=== PATIENT | male | born 1985 | race Caucasian/White ===

== ENCOUNTER 2019-01-16 22:48 | Inpatient (IN) | payer OTHER ==
[~2019-01-16] VITALS: Ht 167.6 cm; Wt 79.5 kg
[2019-01-16] MEDS ORDERED: KETOROLAC 15 MG INJ IV STA (23:48)
[2019-01-17] VITALS (23 sets, daily range): BP systolic 84–122; BP diastolic 46–76; PULSE 54–98; RESP 16–27; Ht 167.6 cm; Wt 79.5 kg
--- NOTE | 2019-01-17 00:05 | ERD ---
ER Documentation Chief Complaint Chief Complaint R TESTICULAR PAIN AND SWELLING X 1 MONTH HPI 33-year-old male with past medical history of right inguinal hernia presenting to the emergency department complaining of increasing pain and swelling noted to the right inguinal region and right testicle for the past 1 day. Pain is rated 8/10 in severity and intermittent. He states typically he is unable to reduce the hernia but today was unable to do so. He tried no medication for relief of symptoms. He denies any abdominal pain, nausea, vomiting, diarrhea, fever, chills, or other symptoms at this time. ROS All systems reviewed and are negative except as per history of present illness. Allergies Allergies: Coded Allergies: No Known Allergy (Unverified , 01/16/19) PMhx/Soc Hx Miscellaneous Medical Probl: Yes (Right inguinal hernia) FmHx Family History: No diabetes Physical Exam Vitals Vital Signs Date Temp Pulse Resp B/P (MAP) Pulse Ox O2 O2 Flow FiO2 Time Delivery Rate 01/16/19 97.6 72 20 158/78 98 22:56 (104) Physical Exam Const: No acute distress Head: Atraumatic Eyes: Normal Conjunctiva ENT: Normal External Ears, Nose and Mouth. Neck: Full range of motion. No meningismus. Resp: Clear to auscultation bilaterally Cardio: Regular rate and rhythm, no murmurs Abd: Soft, non tender, non distended. Normal bowel sounds. No rebound tenderness or guarding. No McBurney's point tenderness. Exam: Scrotum: Normal Hernia: Large nonreducible right inguinal hernia. Testes/Epid: Significant swelling noted to the right testicle with associated tenderness to palpation. Cremaster: Reflex intact Lymph: No inguinal lymphadenopathy Discharge: None Skin: No petechiae or rashes Back: No midline or flank tenderness Ext: No cyanosis, or edema Neur: Awake and alert Psych: Normal Mood and Affect Result Diagram: 01/16/19 2356 01/16/19 2356 Results 24 hrs Laboratory Tests Test 01/16/19 23:56 White Blood Count 13.3 10^3/ul Red Blood Count 5.55 10^6/ul Hemoglobin 15.5 g/dl Hematocrit 45.9 % Mean Corpuscular Volume 82.7 fl Mean Corpuscular Hemoglobin 27.9 pg Mean Corpuscular Hemoglobin Concent 33.8 g/dl Red Cell Distribution Width 12.3 % Platelet Count 272 10^3/UL Mean Platelet Volume 9.9 fl Immature Granulocytes % 0.300 % Neutrophils % 74.0 % Lymphocytes % 17.0 % Monocytes % 7.5 % Eosinophils % 0.8 % Basophils % 0.4 % Nucleated Red Blood Cells % 0.0 /100WBC Immature Granulocytes # 0.040 10^3/ul Neutrophils # 9.9 10^3/ul Lymphocytes # 2.3 10^3/ul Monocytes # 1.0 10^3/ul Eosinophils # 0.1 10^3/ul Basophils # 0.1 10^3/ul Nucleated Red Blood Cells # 0.0 10^3/ul Prothrombin Time 12.4 Sec Prothrombin Time Ratio 1.0 INR International Normalized Ratio 0.91 Activated Partial Thromboplast Time 38.2 Sec Urine Color STRAW Urine Clarity CLEAR Urine pH 6.0 Urine Specific [place] 1.013 Urine Ketones NEGATIVE mg/dL Urine Nitrite NEGATIVE mg/dL Urine Bilirubin NEGATIVE mg/dL Urine Urobilinogen NEGATIVE mg/dL Urine Leukocyte Esterase NEGATIVE Marty/ul Urine Hemoglobin NEGATIVE mg/dL Urine Glucose NEGATIVE mg/dL Urine Total Protein NEGATIVE mg/dl Sodium Level 141 mmol/L Potassium Level 4.2 mmol/L Chloride Level 102 mmol/L Carbon Dioxide Level 30 mmol/L Anion Gap 9 Blood Urea Nitrogen 10 mg/dl Creatinine 0.68 mg/dl Est Glomerular Filtrat Rate mL/min > 60 mL/min Glucose Level 93 mg/dl Calcium Level 10.0 mg/dl Total Bilirubin 0.4 mg/dl Direct Bilirubin 0.00 mg/dl Indirect Bilirubin 0.4 mg/dl Aspartate Amino Transf (AST/SGOT) 27 IU/L Alanine Aminotransferase (ALT/SGPT) 54 IU/L Alkaline Phosphatase 49 IU/L Total Protein 7.8 g/dl Albumin 4.7 g/dl Globulin 3.10 g/dl Albumin/Globulin Ratio 1.51 Lipase 115 U/L Current Medications Medications Dose Sig/Betzy Start Time Status Last (Trade) Ordered Route PRN Stop Time Admin Dose Reason Admin Ketorolac 15 mg ONCE STAT 01/16/19 DC 01/17/19 Tromethamine IV 23:48 00:40 (Toradol) 01/16/19 23:51 IV Flush 10 ml STK-MED 01/17/19 DC 01/17/19 (NS 10 ml) ONCE .ROUTE 01:04 01:13 01/17/19 01:05 Sodium 100 ml @ ud STK-MED 01/17/19 DC 01/17/19 Chloride ONCE .ROUTE 01:04 01:14 01/17/19 01:05 Morphine 6 mg ONCE ONCE 01/17/19 DC 01/17/19 Sulfate IV 02:30 02:12 (morphine) 01/17/19 02:31 Ondansetron 4 mg BRIDGE ORDER 01/17/19 HCl (Zofran PRN IV 05:00 Inj) NAUSEA/VOMITI 01/18/19 04:59 NG 650 mg ER BRIDGE 01/17/19 Acetaminophen PRN PO 05:00 (Tylenol .MILD PAIN 01/18/19 04:59 Tab) 1-3 OR TEMP Procedures/MDM 33-year-old male presenting to the emergency department with signs and symptoms most consistent with right inguinal hernia. On examination, there is a large right inguinal hernia which is nonreducible. CT abdomen and pelvis with contrast was obtained to rule out incarcerated inguinal hernia. CT abdomen and pelvis with contrast showed incarcerated right inguinal hernia. Full reports interpreted by the radiologist may be viewed above. CBC: no e/o of systemic infection or severe anemia CMP: no e/o severe acidosis, alkalosis, renal failure, diabetic ketoacidosis, liver disease Lipase: no e/o pancreatitis PT/INR: normal coagulation Urine: no e/o acute infection or hematuria Medical decision making: History, physical examination, work-up most consistent with right inguinal hernia with evidence of incarceration. Due to these findings, I did consult the attending ED physician, Dr. Nataliia Ibanez, who evaluated the patient bedside and recommended surgical consult for the patient. Patient will be signed out to Dr. Ibanez for further management. Please refer to her note for details regarding ongoing ED course. Patient remained hemodynamically stable under my direct care. Attending addendum My independent concise history is the patient is presenting with right groin pain for 1 day. He has had swelling in his groin area that seems to have been a hernia that the patient was normally able to reduce in the past. However today he has been unable to push the hernia back in for the past 5 hours. He is complaining of constant, aching, nonradiating pain. Denies any associated abdominal pain, nausea, vomiting, fever, chills, dysuria or hematuria.. My pertinent physical exam findings are right-sided large inguinal hernia that is firm to palpation, tender, unable to reduce. The plan is to admit the patient for surgical intervention. I have spoken with Dr. Ardon, the surgeon on-call, who plans to take the patient to the operating room tomorrow.. Accepting Care Team: Current data and ongoing care discussed. Time: Time of admission Primary Provider: Dr. Carpenter Consulting: Dr. Ardon Outstanding Data: none Departure Diagnosis: Primary Impression: Incarcerated right inguinal hernia Condition: Serious KRISTINA ESPINAL PA-C January 17, 2019 00:04 NATALIIA IBANEZ MD January 17, 2019 05:42
[2019-01-17] MEDS ORDERED: SOD CHLORIDE 0.9% 100 ML ONE (01:04)
[2019-01-17] MEDS ORDERED: morphine 10 MG INJ IV ONE (02:30)
[2019-01-17] MEDS ORDERED: ONDANSETRON 4 MG INJ IV PRN ×3 (05:00→17:30)
[2019-01-17] MEDS ORDERED: ACETAMINOPHEN 325 MG TAB PO PRN (05:00)
[2019-01-17] MEDS ORDERED: CEFAZOLIN 1 GM INJ ONE (07:00)
--- NOTE | 2019-01-17 11:35 | HP ---
Date/Time of Note Date/Time of Note DATE: 01/17/19 TIME: 11:33 Assessment/Plan VTE Prophylaxis Pharmacological prophylaxis: NA/contraindicated Pharm contraindication: surgical contra Lines/Catheters IV Catheter Type (from Nrs): Saline Lock Assessment/Plan Hospital Course 1. SIRS 2. Right direct inguinal hernia. CT scan: Apparent incarcerated omental adipose tissue and vasculature within a large right inguinal hernia, resulting in generalized inflammation of the right side of the omentum extending upward nearly to the level of the caudal tip of the liver. No evidence of bowel obstruction or perforation. No evidence of urinary tract stone or obstruction. Testicular US is normal 3. Hx of hernia for one year 8. Overweight Assessment/Plan -DVT proph. SCD bilaterally -GI proph Famotidine BID -pain control _IV fluids -start Zosyn -Surgical consult ER was paged Dr Cordova Result Diagram: 01/16/19 2352 01/16/19 2356 Results 24hrs Laboratory Tests Test 01/16/19 23:56 White Blood Count 13.3 H Red Blood Count 5.55 Hemoglobin 15.5 Hematocrit 45.9 Mean Corpuscular Volume 82.7 Mean Corpuscular Hemoglobin 27.9 L Mean Corpuscular Hemoglobin Concent 33.8 Red Cell Distribution Width 12.3 Platelet Count 272 Mean Platelet Volume 9.9 Immature Granulocytes % 0.300 Neutrophils % 74.0 Lymphocytes % 17.0 Monocytes % 7.5 Eosinophils % 0.8 Basophils % 0.4 Nucleated Red Blood Cells % 0.0 Immature Granulocytes # 0.040 H Neutrophils # 9.9 H Lymphocytes # 2.3 Monocytes # 1.0 H Eosinophils # 0.1 Basophils # 0.1 Nucleated Red Blood Cells # 0.0 Prothrombin Time 12.4 Prothrombin Time Ratio 1.0 INR International Normalized Ratio 0.91 Activated Partial Thromboplast Time 38.2 H Urine Color STRAW Urine Clarity CLEAR Urine pH 6.0 Urine Specific [place] 1.013 Urine Ketones NEGATIVE Urine Nitrite NEGATIVE Urine Bilirubin NEGATIVE Urine Urobilinogen NEGATIVE Urine Leukocyte Esterase NEGATIVE Urine Hemoglobin NEGATIVE Urine Glucose NEGATIVE Urine Total Protein NEGATIVE Sodium Level 141 Potassium Level 4.2 Chloride Level 102 Carbon Dioxide Level 30 Anion Gap 9 Blood Urea Nitrogen 10 Creatinine 0.68 Est Glomerular Filtrat Rate mL/min > 60 Glucose Level 93 Calcium Level 10.0 Total Bilirubin 0.4 Direct Bilirubin 0.00 Indirect Bilirubin 0.4 Aspartate Amino Transf (AST/SGOT) 27 Alanine Aminotransferase (ALT/SGPT) 54 Alkaline Phosphatase 49 Total Protein 7.8 Albumin 4.7 Globulin 3.10 Albumin/Globulin Ratio 1.51 Lipase 115 HPI/ROS Admit Date/Time Admit Date/Time Hx of Present Illness This 33-year-old male with past medical history of right inguinal hernia for a year presenting to the emergency department per ER record complaining of increasing pain and swelling noted to the right inguinal region and right testicle for the past 1 day. He said his pain is rated 8/10 in severity and intermittent. He states typically he never has hernia that big. He had a history of right inguinal hernia for 1 year with some testicular pain sometimes. He was seeing by dr Diaz and was sent for some US, pt is poor historian, unable to provide a details. His hernia increased for 1 day. ROS Genitourinary: other (right bulging inguinal mass with pain, ) Musculoskeletal: swelling (right inguinal area) PMH/Family/Social Past Medical History Medical History: no pertinent history Medications Current Medications Ondansetron HCl (Zofran Inj) 4 mg BRIDGE ORDER PRN IV NAUSEA/VOMITING; Start 01/17/19 at 05:00; Stop 01/18/19 at 04:59 Acetaminophen (Tylenol Tab) 650 mg ER BRIDGE PRN PO .MILD PAIN 1-3 OR TEMP; St art 01/17/19 at 05:00; Stop 01/18/19 at 04:59 Morphine Sulfate (morphine) 1 mg Q6 PRN IV pain; Start 01/17/19 at 11:30; Status UNV Dextrose/Sodium Chloride 1,000 ml @ 70 mls/hr [id number] IV ; Start 01/17/19 at 12:00; Status UNV Coded Allergies: No Known Allergy (Unverified , 01/17/19) Past Surgical History Past Surgical Hx: no surgical history Social History Alcohol Use: none Smoking Status: Never smoker Drug Use: none Exam/Review of Systems Vital Signs Vitals Vital Signs Date Temp Pulse Resp B/P (MAP) Pulse Ox O2 O2 Flow FiO2 Time Delivery Rate 01/17/19 72 18 137/83 98 Room Air 11:13 (101) 01/17/19 98.0 10:00 Intake and Output 01/16/19 01/16/19 01/17/19 1515:00 23:00 07:00 IntakeIntake Total 100 ml BalanceBalance 100 ml Exam Constitutional: alert, oriented Respiratory: clear to auscultation Cardiovascular: regular rate and rhythm Gastrointestinal: soft Genitourinary - Male: CVA tenderness, other (right direct inguinal hernia); No nl penis, No nl scrotum, No discharge RAKESH BANDA January 17, 2019 11:35
[2019-01-17] MEDS ORDERED: PANTOPRAZOLE 40 MG INJ IV ONE (12:00)
[2019-01-17] MEDS: FAMOTIDINE 20 MG INJ IV SCH ×2 (12:27→21:20)
[2019-01-17] MEDS: PIPER-TAZO 3.375 GM IV (PMX) 100 ML IVPB SCH ×3 (12:27→23:26)
[2019-01-17] MEDS: DEXTROSE 5%-0.9% NACL 1,000 ML IV SCH (12:27)
--- NOTE | 2019-01-17 16:07 | CONS ---
Consultation Date/Type/Reason Admit Date/Time Date of Consultation: January 17, 2019 Type of Consult General surgical Reason for Consultation Right lower quadrant pain Incarcerated right inguinal hernia Mild leukocytosis BMI 28 Requesting Provider: KRISTINA ESPINAL PA-C Date/Time of Note DATE: 01/17/19 TIME: 16:06 Past Medical History Medical History: no pertinent history Home Meds No Active Prescriptions or Reported Meds Medications Current Medications Morphine Sulfate (morphine) 1 mg Q6H PRN IV pain; Start 01/17/19 at 11:30 Dextrose/Sodium Chloride 1,000 ml @ 70 mls/hr [id number] IV Last administered on 01/17/19at 12:27; Admin Dose 70 MLS/HR; Start 01/17/19 at 12:00 Piperacillin Sod/ Tazobactam Sod 100 ml @ 200 mls/hr Q6 IVPB Last administered on 01/17/19at 12:27; Admin Dose 200 MLS/HR; Start 01/17/19 at 12:00 Famotidine (Pepcid Iv) 20 mg BID IV Last administered on 01/17/19at 12:27; Admin Dose 20 MG; Start 01/17/19 at 12:00 Ondansetron HCl (Zofran Inj) 4 mg Q6H PRN IV NAUSEA AND/OR VOMITING; Start 01/17/19 at 16:00 Allergies: Coded Allergies: No Known Allergy (Unverified , 01/17/19) Past Surgical History Past Surgical Hx: no surgical history Social History Alcohol Use: none Smoking Status: Never smoker Drug Use: none Exam/Review of Systems Exam Vitals Vital Signs Date Temp Pulse Resp B/P (MAP) Pulse Ox O2 O2 Flow FiO2 Time Delivery Rate 01/17/19 98.6 67 18 121/76 94 13:02 (91) 01/17/19 Room Air 11:13 Intake and Output 01/16/19 01/16/19 01/17/19 1515:00 23:00 07:00 IntakeIntake Total 100 ml BalanceBalance 100 ml Results Result Diagram: 01/16/19 2356 01/16/19 2356 Results 24hrs Laboratory Tests Test 01/16/19 23:56 White Blood Count 13.3 H Red Blood Count 5.55 Hemoglobin 15.5 Hematocrit 45.9 Mean Corpuscular Volume 82.7 Mean Corpuscular Hemoglobin 27.9 L Mean Corpuscular Hemoglobin Concent 33.8 Red Cell Distribution Width 12.3 Platelet Count 272 Mean Platelet Volume 9.9 Immature Granulocytes % 0.300 Neutrophils % 74.0 Lymphocytes % 17.0 Monocytes % 7.5 Eosinophils % 0.8 Basophils % 0.4 Nucleated Red Blood Cells % 0.0 Immature Granulocytes # 0.040 H Neutrophils # 9.9 H Lymphocytes # 2.3 Monocytes # 1.0 H Eosinophils # 0.1 Basophils # 0.1 Nucleated Red Blood Cells # 0.0 Prothrombin Time 12.4 Prothrombin Time Ratio 1.0 INR International Normalized Ratio 0.91 Activated Partial Thromboplast Time 38.2 H Urine Color STRAW Urine Clarity CLEAR Urine pH 6.0 Urine Specific [place] 1.013 Urine Ketones NEGATIVE Urine Nitrite NEGATIVE Urine Bilirubin NEGATIVE Urine Urobilinogen NEGATIVE Urine Leukocyte Esterase NEGATIVE Urine Hemoglobin NEGATIVE Urine Glucose NEGATIVE Urine Total Protein NEGATIVE Sodium Level 141 Potassium Level 4.2 Chloride Level 102 Carbon Dioxide Level 30 Anion Gap 9 Blood Urea Nitrogen 10 Creatinine 0.68 Est Glomerular Filtrat Rate mL/min > 60 Glucose Level 93 Calcium Level 10.0 Total Bilirubin 0.4 Direct Bilirubin 0.00 Indirect Bilirubin 0.4 Aspartate Amino Transf (AST/SGOT) 27 Alanine Aminotransferase (ALT/SGPT) 54 Alkaline Phosphatase 49 Total Protein 7.8 Albumin 4.7 Globulin 3.10 Albumin/Globulin Ratio 1.51 Lipase 115 Medications Medication Current Medications Morphine Sulfate (morphine) 1 mg Q6H PRN IV pain; Start 01/17/19 at 11:30 Dextrose/Sodium Chloride 1,000 ml @ 70 mls/hr [id number] IV Last administered on 01/17/19at 12:27; Admin Dose 70 MLS/HR; Start 01/17/19 at 12:00 Piperacillin Sod/ Tazobactam Sod 100 ml @ 200 mls/hr Q6 IVPB Last administered on 01/17/19at 12:27; Admin Dose 200 MLS/HR; Start 01/17/19 at 12:00 Famotidine (Pepcid Iv) 20 mg BID IV Last administered on 01/17/19at 12:27; Admin Dose 20 MG; Start 01/17/19 at 12:00 Ondansetron HCl (Zofran Inj) 4 mg Q6H PRN IV NAUSEA AND/OR VOMITING; Start 01/17/19 at 16:00 KWESI WORTHINGTON MD January 17, 2019 16:07
--- NOTE | 2019-01-17 17:27 | PREAC ---
Date/Time of Note Date/Time of Note DATE: 01/17/19 TIME: 17:26 Anesthesia Eval and Record Evaluation Time Pre-Procedure Interview DATE: 01/17/19 TIME: 17:26 Age 33 Sex male NPO: 8 hrs Preoperative diagnosis R incarcerated inguinal hernia Planned procedure R open hernia repair with mesh Past Medical History Past Medical History: Includes GI: Obesity Surgery & Anesthesia Issues No known issue Meds Anticoagulation: No Beta Nimisha within 24 hr: No Reason Beta Nimisha not given: Pt. not on B-Nimisha No Active Prescriptions or Reported Meds Current Medications Morphine Sulfate (morphine) 1 mg Q6H PRN IV pain; Start 01/17/19 at 11:30 Dextrose/Sodium Chloride 1,000 ml @ 70 mls/hr [id number] IV Last administered on 01/17/19at 12:27; Admin Dose 70 MLS/HR; Start 01/17/19 at 12:00 Piperacillin Sod/ Tazobactam Sod 100 ml @ 200 mls/hr Q6 IVPB Last administered on 01/17/19at 12:27; Admin Dose 200 MLS/HR; Start 01/17/19 at 12:00 Famotidine (Pepcid Iv) 20 mg BID IV Last administered on 01/17/19at 12:27; Admin Dose 20 MG; Start 01/17/19 at 12:00 Ondansetron HCl (Zofran Inj) 4 mg Q6H PRN IV NAUSEA AND/OR VOMITING; Start 01/17/19 at 16:00 Meds reviewed: Yes Allergies Coded Allergies: No Known Allergy (Unverified , 01/17/19) Allergies Reviewed: Yes Labs/Studies Labs Reviewed: Reviewed by anesthesiologist Result Diagram: 01/16/19 2356 01/16/19 2356 Laboratory Tests 01/16/19 23:56 test: N/A Pre-procedure Exam Last vitals Vital Signs Date Temp Pulse Resp B/P (MAP) Pulse Ox O2 O2 Flow FiO2 Time Delivery Rate 01/17/19 98.6 67 18 121/76 94 13:02 (91) 01/17/19 Room Air 11:13 Airway: Adequate mouth opening, Adequate thyromental dist Mallampati: Mallampati II Teeth: Normal Lung: Normal Heart: Normal ASA Physical Status ASA physical status: 2 Emergency: None Planned Anesthetic General/MAC: ETT Nerve block: TAP (bilateral) Pre-operative Attestations Prior to commencing anesthesia and surgery, the patient was re-evaluated, there was verification of: *The patient's identity *The results of appropriate recent lab work and preoperative vital signs *The above evaluation not changing prior to induction *Anesthetic plan, risk benefits, alternative and complications discussed with patient/family; questions answered; patient/family understands, accepts and wis hes to proceed. MICHAEL ARNOLD January 17, 2019 17:26
[2019-01-17] MEDS ORDERED: HYDROmorphONE 1 MG/5 ML IV SYRINGE IV PRN ×3 (17:30)
[2019-01-17] MEDS ORDERED: MEPERIDINE 25 MG INJ IV PRN (17:30)
[2019-01-17] MEDS ORDERED: ALBUTEROL 0.083% (NEB) 2.5 MG/3 ML AMP HHN PRN (17:30)
[2019-01-17] MEDS ORDERED: DIPHENHYDRAMINE 50 MG INJ IV PRN (17:30)
[2019-01-17] MEDS ORDERED: FENTAnyl 50 MCG/ML VIAL IV PRN ×3 (17:30)
[2019-01-17] MEDS ORDERED: METOCLOPRAMIDE 10 MG INJ IV PRN (17:30)
[2019-01-17] MEDS ORDERED: FENTAnyl 50 MCG/ML VIAL ONE ×2 (17:51→19:41)
[2019-01-17] MEDS ORDERED: ROPIVACAINE 0.5 % 30 ML VIAL ONE (17:51)
[2019-01-17] MEDS ORDERED: POLYMYXIN/BACITRACIN 1L IRRIG IRR ONE (18:53)
[2019-01-17] MEDS ORDERED: PROPOFOL 20 ML ONE (19:41)
[2019-01-17] MEDS ORDERED: NEOSTIGMINE 3 MG/3 ML SYRINGE ONE (19:41)
[2019-01-17] MEDS ORDERED: SUCCINYLCHOLINE CHLORIDE 100 MG/5 ML SYG IV ONE (19:41)
[2019-01-17] MEDS ORDERED: LIDOCAINE 100 MG SYRINGE ONE (19:41)
[2019-01-17] MEDS ORDERED: ROCURONIUM 50 MG INJ ONE (19:41)
[2019-01-17] MEDS ORDERED: GLYCOPYRROLATE 0.4 MG INJ ONE (19:41)
[2019-01-17] MEDS: morphine 2 MG INJ IV PRN (23:27)
[2019-01-18] VITALS: BP 112/77; PULSE 101
[2019-01-18] MEDS: DEXTROSE 5%-0.9% NACL 1,000 ML IV SCH ×2 (02:18→12:42)
[2019-01-18 03:05] VITALS: BP 117/70; PULSE 100; RESP 20
[2019-01-18] MEDS: PIPER-TAZO 3.375 GM IV (PMX) 100 ML IVPB SCH ×4 (05:34→23:53)
[2019-01-18] MEDS: morphine 2 MG INJ IV PRN ×2 (05:35→15:00)
[2019-01-18 07:55] VITALS: BP 122/68; PULSE 119; RESP 18
[2019-01-18] MEDS: FAMOTIDINE 20 MG INJ IV SCH ×2 (09:04→20:47)
--- NOTE | 2019-01-18 09:16 | OPR ---
Date/Time of Note Date/Time of Note DATE: 01/18/19 TIME: 09:13 Operative Report Procedure Date: January 17, 2019 Preoperative Diagnosis Incarcerated rih with omentum BMI 28 Postoperative Diagnosis strangulated omentum in rih bmi 28 difficult operation Operation/Procedure Performed RIHR c Ovitex mesh Partial omentectomy Difficult operation, modifier 22 Surgeon Kwesi Worthington MD Defense Travel Administrator None Anesthesia Type: general (+ local + regional) Anesthesiologist: MICHAEL ARNOLD Estimated Blood Loss: 10 - 50 ml's Transfusion none Specimen Omentum Sac Grafts/Implants Ovitex permanent Tubes/Drains None Complications none Pt Condition Post Procedure: stable Disposition: PACU Indications Per consult note. R/B/A as usual and customary. Higher risk for infection and complication described to pt and and they agree to proceed. Procedure Description Patient was brought in, placed supine on the operating table. He was prepped and draped in sterile fashion. He received preoperative antibiotics. All pressure points were well-padded. Timeout was performed. Incision was made over the hernia site parallel to the inguinal ligament and extended down through subcutaneous tissue to the external oblique fascia. There is a huge hernia that is not reducible. External oblique fascia was opened along its fascial lines and the hernia is identified. Using finger dissection I was able to separate some of of the hernia sac from the surrounding structures however incarceration was very difficult and significant and I was unable to reduce. Decision was made to open the hernia sac sharply at this point large amount of bloody fluid was aspirated. Nonischemic looking the omentum was identified and likes to area arise from the scrotum. Base of the hernia was identified to be indirect hernia. Omentum was identified to be healthier just at the base. Using LigaSure part of the her omentum that was ischemic was transected and complete hemostasis is obtained and the remaining omentum was placed back into the abdomen. Partial omentum was sent to pathology. Using gentle dissection a large hernia sac was from the cord structures and the testicle. The testicle had to be exteriorized. The hernia sac was fully mobilized off of all the structures and suture ligated and the remaining part of the sac was sent to pathology. Sac was placed back into the abdomen. There was bleeding from the inferior epigastric vessels and those had to be ligated with 2-0 silk suture. The testicle was tacked down to the scrotum using 2-0 chromic suture in multiple areas to reduce torsion. Using overtax mesh because of the ischemic omentum hernia was repaired. Mesh was sutured to the tubercle times noons 2 with 2-0 Prolene and then 1 of them was ran superiorly along the conjoined tendon and the second 1 along the shelving edge both going beyond the internal ring. Area was irrigated prior to mesh after the mesh in between each layer closures with warm saline to clear suction fluid. There was complete hemostasis at this point. External oblique fascia was closed over the mesh using 2-0 Vicryl suture leaving space for external opening. Cord was intact. Minh's fascia and then dermal and then 4 Monocryl skin closures were performed using Vicryl then Monocryl. As I mentioned earlier multiple irrigations were performed between each closure. Dermabond was applied. Examination of the scrotum make sure the testicle is back into the scrotum good position. Patient was recovered and taken back to recovery room in stable condition all counts were correct at the end of the operation x2. Procedure was difficult and tedious and very meticulous dissection had to be performed to identify the structures and repair the hernia. KWESI WORTHINGTON MD January 18, 2019 09:16
--- NOTE | 2019-01-18 09:59 | PN ---
Date/Time of Note Date/Time of Note DATE: 01/18/19 TIME: 09:58 Assessment/Plan VTE Prophylaxis Risk score (from Ns)>0 risk: 3 SCD applied (from Ns): Yes SCD contraindicated: low risk/ambulating Pharmacological prophylaxis: NA/contraindicated Pharm contraindication: surgical contra Lines/Catheters IV Catheter Type (from [facility]): Peripheral IV Urinary Cath still in place: No Assessment/Plan Hospital Course 1. SIRS 2. Right direct incarcerated inguinal hernia. CT scan: Apparent incarcerated omental adipose tissue and vasculature within a large right inguinal hernia, resulting in generalized inflammation of the right side of the omentum extending upward nearly to the level of the caudal tip of the liver. No evidence of bowel obstruction or perforation. No evidence of urinary tract stone or obstruction. Testicular US is normal 3. Hx of hernia for one year 8. Overweight Assessment/Plan -DVT proph. SCD bilaterally -GI proph Famotidine BID -pain control _IV fluids decreased -c/w Zosyn -Surgical consult Dr Ardon Result Diagram: 01/18/19 0437 01/18/19 0437 Results 24hrs Laboratory Tests Test 01/18/19 04:37 White Blood Count 24.5 #H Red Blood Count 3.89 #L Hemoglobin 11.1 #L Hematocrit 33.2 #L Mean Corpuscular Volume 85.3 Mean Corpuscular Hemoglobin 28.5 L Mean Corpuscular Hemoglobin Concent 33.4 Red Cell Distribution Width 12.8 Platelet Count 290 Mean Platelet Volume 10.5 H Immature Granulocytes % 0.700 H Neutrophils % Lymphocytes % Monocytes % Eosinophils % Basophils % Nucleated Red Blood Cells % 0.0 Immature Granulocytes # 0.160 H Neutrophils # Lymphocytes # Monocytes # Eosinophils # Basophils # Nucleated Red Blood Cells # Sodium Level 141 Potassium Level 4.4 Chloride Level 107 Carbon Dioxide Level 23 Anion Gap 11 Blood Urea Nitrogen 9 Creatinine 0.66 Est Glomerular Filtrat Rate mL/min > 60 Glucose Level 172 Calcium Level 8.0 L Subjective 24 Hr Interval Summary Skin: other (pain) Exam/Review of Systems Exam Vitals Vital Signs Date Temp Pulse Resp B/P (MAP) Pulse Ox O2 O2 Flow FiO2 Time Delivery Rate 01/18/19 97.9 119 18 122/68 99 Room Air 07:55 (86) 01/17/19 20:34 Intake and Output 5/07/2801/17/19 01/18/19 1515:00 23:00 07:00 IntakeIntake Total 200 ml 2380 ml 690 ml OutputOutput Total 20 ml BalanceBalance 200 ml 2360 ml 690 ml Constitutional: alert, oriented Respiratory: clear to auscultation Cardiovascular: regular rate and rhythm Gastrointestinal: soft Genitourinary - Male: CVA tenderness, other (right inguinal scar); No nl penis, No nl scrotum, No discharge Results Results 24hrs Laboratory Tests Test 01/18/19 04:37 White Blood Count 24.5 #H Red Blood Count 3.89 #L Hemoglobin 11.1 #L Hematocrit 33.2 #L Mean Corpuscular Volume 85.3 Mean Corpuscular Hemoglobin 28.5 L Mean Corpuscular Hemoglobin Concent 33.4 Red Cell Distribution Width 12.8 Platelet Count 290 Mean Platelet Volume 10.5 H Immature Granulocytes % 0.700 H Neutrophils % Lymphocytes % Monocytes % Eosinophils % Basophils % Nucleated Red Blood Cells % 0.0 Immature Granulocytes # 0.160 H Neutrophils # Lymphocytes # Monocytes # Eosinophils # Basophils # Nucleated Red Blood Cells # Sodium Level 141 Potassium Level 4.4 Chloride Level 107 Carbon Dioxide Level 23 Anion Gap 11 Blood Urea Nitrogen 9 Creatinine 0.66 Est Glomerular Filtrat Rate mL/min > 60 Glucose Level 172 Calcium Level 8.0 L Medications Medication Current Medications Morphine Sulfate (morphine) 1 mg Q6H PRN IV pain Last administered on 01/18/19 05:35; Admin Dose 1 MG; Start 01/17/19 at 11:30 Dextrose/Sodium Chloride 1,000 ml @ 70 mls/hr [id number] IV Last administered on 01/17/19at 12:27; Admin Dose 70 MLS/HR; Start 01/17/19 at 12:00 Piperacillin Sod/ Tazobactam Sod 100 ml @ 200 mls/hr Q6 IVPB Last administered on 01/18/19 05:34; Admin Dose 200 MLS/HR; Start 01/17/19 at 12:00 Famotidine (Pepcid Iv) 20 mg BID IV Last administered on 01/18/19 09:04; Admin Dose 20 MG; Start 01/17/19 at 12:00 Ondansetron HCl (Zofran Inj) 4 mg Q6H PRN IV NAUSEA AND/OR VOMITING Last administered on 5/11/19at 21:20; Admin Dose 4 MG; Start 01/17/19 at 16:00 RAKESH BANDA January 18, 2019 09:59
[2019-01-18] MEDS: HYDROCODONE/APAP (5/325) TAB PO PRN ×2 (11:10→20:41)
[2019-01-18 15:07] VITALS: PULSE 98
[2019-01-18 15:11] VITALS: BP 135/72; PULSE 98; RESP 18
[2019-01-18 19:16] VITALS: BP 141/79; PULSE 113; RESP 18
--- NOTE | 2019-01-18 23:22 | PN ---
Date/Time of Note Date/Time of Note DATE: 01/18/19 TIME: 23:22 Assessment/Plan Lines/Catheters IV Catheter Type (from [facility]): Peripheral IV Taylor in Place (from [facility]): No Exam/Review of Systems Vital Signs Vitals Vital Signs Date Temp Pulse Resp B/P (MAP) Pulse Ox O2 O2 Flow FiO2 Time Delivery Rate 01/18/19 98.0 113 18 141/79 98 Room Air 19:16 (99) 01/17/19 20:34 Intake and Output 01/17/19 01/17/19 01/18/19 1515:00 23:00 07:00 IntakeIntake Total 200 ml 2380 ml 690 ml OutputOutput Total 20 ml BalanceBalance 200 ml 2360 ml 690 ml Results Result Diagram: 01/18/19 0437 01/18/19 0437 KWESI WORTHINGTON MD January 18, 2019 23:22
[2019-01-19] MEDS: HYDROCODONE/APAP (5/325) TAB PO PRN ×3 (01:19→17:42)
[2019-01-19 01:28] VITALS: BP 120/68; PULSE 92; RESP 18
[2019-01-19] MEDS: PIPER-TAZO 3.375 GM IV (PMX) 100 ML IVPB SCH ×3 (05:41→17:42)
[2019-01-19] MEDS: morphine 2 MG INJ IV PRN (05:42)
[2019-01-19 07:37] VITALS: BP 127/71; PULSE 106; RESP 18
--- NOTE | 2019-01-19 08:16 | PAC ---
Date/Time of Note Date/Time of Note DATE: 01/19/19 TIME: 08:16 Post-Anesthesia Notes Post-Anesthesia Note Last documented vital signs Vital Signs Date Temp Pulse Resp B/P (MAP) Pulse Ox O2 O2 Flow FiO2 Time Delivery Rate 01/19/19 98.5 106 18 127/71 93 07:37 (89) 01/19/19 Room Air 01:28 01/17/19 20:34 Activity: WNL Respiratory function: WNL Cardiovascular function: WNL Mental status: Baseline Pain reasonably controlled: Yes Hydration appropriate: Yes Nausea/Vomiting absent: Yes MICHAEL ARNOLD January 19, 2019 08:16
[2019-01-19] MEDS: FAMOTIDINE 20 MG TAB PO SCH ×2 (09:22→20:16)
[2019-01-19 13:55] VITALS: BP 145/85; PULSE 109; RESP 18
--- NOTE | 2019-01-19 14:00 | PN ---
Date/Time of Note Date/Time of Note DATE: 01/19/19 TIME: 13:58 Assessment/Plan VTE Prophylaxis Risk score (from Ns)>0 risk: 3 SCD applied (from Ns): Yes Pharmacological prophylaxis: NA/contraindicated Pharm contraindication: low risk/ambulating Lines/Catheters IV Catheter Type (from [facility]): Peripheral IV Urinary Cath still in place: No Assessment/Plan Assessment/Plan 1 SIRS with leukkocytosis 2. Right direct incarcerated inguinal hernia. CT scan: Apparent incarcerated omental adipose tissue and vasculature within a large right inguinal hernia, resulting in generalized inflammation of the right side of the omentum extending upward nearly to the level of the caudal tip of the liver. No evidence of bowel obstruction or perforation. No evidence of urinary tract stone or obstruction. s/p RIHR c Ovitex mesh Partial omentectomy POD #2 3. Hx of hernia for one year 8. Overweight plan -Postop care -pain control -White count trending down -Zosyn -Management per surgery Result Diagram: 01/19/19 0435 01/19/19 0435 Results 24hrs Laboratory Tests Test 01/19/19 04:35 White Blood Count 15.9 #H Red Blood Count 2.89 #L Hemoglobin 8.2 #L Hematocrit 24.9 #L Mean Corpuscular Volume 86.2 Mean Corpuscular Hemoglobin 28.4 L Mean Corpuscular Hemoglobin Concent 32.9 Red Cell Distribution Width 12.9 Platelet Count 230 # Mean Platelet Volume 10.3 Immature Granulocytes % 0.400 Neutrophils % 74.5 Lymphocytes % 11.0 L Monocytes % 13.7 H Eosinophils % 0.1 Basophils % 0.3 Nucleated Red Blood Cells % 0.0 Immature Granulocytes # 0.070 H Neutrophils # 11.9 H Lymphocytes # 1.8 Monocytes # 2.2 H Eosinophils # 0.0 Basophils # 0.0 Nucleated Red Blood Cells # 0.0 Sodium Level 142 Potassium Level 4.0 Chloride Level 105 Carbon Dioxide Level 30 Anion Gap 7 Blood Urea Nitrogen 7 Creatinine 0.70 Est Glomerular Filtrat Rate mL/min > 60 Glucose Level 110 # Calcium Level 8.4 Subjective 24 Hr Interval Summary Free Text/Dictation Pain at the surgical site Swelling is present Exam/Review of Systems Exam Vitals Vital Signs Date Temp Pulse Resp B/P (MAP) Pulse Ox O2 O2 Flow FiO2 Time Delivery Rate 01/19/19 99.2 109 18 145/85 96 13:55 (105) 01/19/19 Room Air 01:28 01/17/19 20:34 Intake and Output 01/18/19 01/18/19 01/19/19 1515:00 23:00 07:00 IntakeIntake Total 330 ml 200 ml 860 ml BalanceBalance 330 ml 200 ml 860 ml Exam Rt inguinal edema++ Results Results 24hrs Laboratory Tests Test 01/19/19 04:35 White Blood Count 15.9 #H Red Blood Count 2.89 #L Hemoglobin 8.2 #L Hematocrit 24.9 #L Mean Corpuscular Volume 86.2 Mean Corpuscular Hemoglobin 28.4 L Mean Corpuscular Hemoglobin Concent 32.9 Red Cell Distribution Width 12.9 Platelet Count 230 # Mean Platelet Volume 10.3 Immature Granulocytes % 0.400 Neutrophils % 74.5 Lymphocytes % 11.0 L Monocytes % 13.7 H Eosinophils % 0.1 Basophils % 0.3 Nucleated Red Blood Cells % 0.0 Immature Granulocytes # 0.070 H Neutrophils # 11.9 H Lymphocytes # 1.8 Monocytes # 2.2 H Eosinophils # 0.0 Basophils # 0.0 Nucleated Red Blood Cells # 0.0 Sodium Level 142 Potassium Level 4.0 Chloride Level 105 Carbon Dioxide Level 30 Anion Gap 7 Blood Urea Nitrogen 7 Creatinine 0.70 Est Glomerular Filtrat Rate mL/min > 60 Glucose Level 110 # Calcium Level 8.4 Medications Medication Current Medications Morphine Sulfate (morphine) 1 mg Q6H PRN IV pain Last administered on 01/19/19at 05:42; Admin Dose 1 MG; Start 01/17/19 at 11:30 Dextrose/Sodium Chloride 1,000 ml @ 20 mls/hr Q24H IV Last administered on 01/18/19at 12:42; Admin Dose 20 MLS/HR; Start 01/17/19 at 12:00 Piperacillin Sod/ Tazobactam Sod 100 ml @ 200 mls/hr Q6 IVPB Last administered on 01/19/19at 11:57; Admin Dose 200 MLS/HR; Start 01/17/19 at 12:00 Ondansetron HCl (Zofran Inj) 4 mg Q6H PRN IV NAUSEA AND/OR VOMITING Last administered on 01/17/19at 21:20; Admin Dose 4 MG; Start 01/17/19 at 16:00 Acetaminophen/ Hydrocodone Bitart ([place] (5/325)) 1 tab Q4H PRN PO MODERATE PAIN LEVEL 4-6 Last administered on 01/19/19at 09:22; Admin Dose 1 TAB; Start 01/18/19 at 10:30 Famotidine (Pepcid) 20 mg BID PO Last administered on 01/19/19at 09:22; Admin Dose 20 MG; Start 01/19/19 at 09:00 HANH MOORE MD January 19, 2019 14:00
[2019-01-19 20:38] VITALS: BP 145/75; PULSE 109; RESP 18
[2019-01-20] MEDS: PIPER-TAZO 3.375 GM IV (PMX) 100 ML IVPB SCH ×5 (00:29→23:56)
[2019-01-20 02:02] VITALS: BP 132/71; PULSE 116; RESP 18
[2019-01-20] MEDS: HYDROCODONE/APAP (5/325) TAB PO PRN ×2 (03:24→11:54)
[2019-01-20 04:18] VITALS: BP 124/67; PULSE 122; RESP 18
[2019-01-20 07:59] VITALS: BP 128/70; PULSE 112; RESP 18
[2019-01-20] MEDS ORDERED: IOHEXOL 300MG/ML 150 ML BTL ONE (08:14)
[2019-01-20] MEDS ORDERED: SOD CHLORIDE 0.9% 100 ML ONE (08:14)
[2019-01-20] MEDS: FAMOTIDINE 20 MG TAB PO SCH ×2 (08:44→20:20)
--- NOTE | 2019-01-20 09:36 | PN ---
Date/Time of Note Date/Time of Note DATE: 01/20/19 TIME: 09:29 Assessment/Plan Lines/Catheters IV Catheter Type (from [facility]): Saline Lock [facility] in Place (from [facility]): No Assessment/Plan Chief Complaint/Hosp Course 1. Strangulated omentum in right inguinal hernia: Status post repair, partial omentectomy on 01/18/2019; fever and right scrotal swelling -Continue antibiotics -IS -ambulate -ice pack to surgical site -advance diet as tolerated -CT -rolled towel to elevate scrotum 2.Leukocytosis: Improving however still with fevers -Trend -As above 3. Hypochromic anemia: -Monitor and transfuse as needed 4. Overweight BMI: -diet and exercise optimization -encourage weight loss Thank you. Patient seen and examined in collaboration with Dr. Grabiel Ardon. Subjective 24 Hr Interval Summary Low-grade fever. scrotal swelling. No fevers, chills, sob, congested cough, cp, palpitations, chao, dizziness, n/v/d/dysuria. Exam/Review of Systems Vital Signs Vitals Vital Signs Date Temp Pulse Resp B/P (MAP) Pulse Ox O2 O2 Flow FiO2 Time Delivery Rate 01/20/19 100.2 112 18 128/70 93 Room Air 07:59 (89) 01/17/19 20:34 Intake and Output 01/19/19 01/19/19 01/20/19 1515:00 23:00 07:00 IntakeIntake Total 680 ml 100 ml 200 ml BalanceBalance 680 ml 100 ml 200 ml Exam Constitutional: alert, oriented, well developed Psych: nl mood/affect Head: normocephalic, atraumatic Eyes: nl conjunctiva, EOMI, nl lids, nl sclera ENMT: nl external ears & nose, nl lips & teeth, mucosa pink and moist Neck: supple, non-tender Respiratory: normal air movement; No congested cough Cardiovascular: regular rate and rhythm, nl pulses; No edema Gastrointestinal: soft, tender (Right inguinal incision site: Incision site clean without drainage/discoloration/bruising); No distended Genitourinary - Male: No nl scrotum (Right scrotal swelling) Musculoskeletal: nl extremities to inspection, nl gait and stance Extremities: normal pulses Neurological: nl mental status, nl speech, nl strength Skin: No rash or lesions Lymph: No nl lymph nodes Results Result Diagram: 01/20/19 0501 01/20/19 0501 EBONI ZARAGOZA NP January 20, 2019 09:36
--- NOTE | 2019-01-20 11:06 | PN ---
Date/Time of Note Date/Time of Note DATE: 01/20/19 TIME: 11:03 Assessment/Plan VTE Prophylaxis Risk score (from Ns)>0 risk: 3 SCD applied (from Ns): No SCD contraindicated: low risk/ambulating Pharmacological prophylaxis: NA/contraindicated Pharm contraindication: low risk/ambulating Lines/Catheters IV C[facility]ter Type (from [facility]): Saline Lock Urinary Cath still in place: No Assessment/Plan Assessment/Plan 1 SIRS with leukkocytosis 2. Right direct incarcerated inguinal hernia. CT scan: Apparent incarcerated omental adipose tissue and vasculature within a large right inguinal hernia, resulting in generalized inflammation of the right side of the omentum extending upward nearly to the level of the caudal tip of the liver. No evidence of bowel obstruction or perforation. No evidence of urinary tract stone or obstruction. s/p RIHR c Ovitex mesh Partial omentectomy POD #3 3. Hx of hernia for one year 8. Overweight Plan -Now with low-grade fevers and marked scrotal swelling, CT of the abdomen and pelvis to evaluate -Continue with Zosyn -Blood cultures -Ambulate -Pain control -Follow-up with surgery recs Result Diagram: 01/20/19 0501 01/20/19 0501 Results 24hrs Laboratory Tests Test 01/20/19 05:01 White Blood Count 13.3 H Red Blood Count 2.80 L Hemoglobin 7.9 L Hematocrit 24.2 L Mean Corpuscular Volume 86.4 Mean Corpuscular Hemoglobin 28.2 L Mean Corpuscular Hemoglobin Concent 32.6 Red Cell Distribution Width 12.5 Platelet Count 240 Mean Platelet Volume 9.9 Immature Granulocytes % 0.500 H Neutrophils % 74.1 Lymphocytes % 11.5 L Monocytes % 13.4 H Eosinophils % 0.1 Basophils % 0.4 Nucleated Red Blood Cells % 0.0 Immature Granulocytes # 0.070 H Neutrophils # 9.9 H Lymphocytes # 1.5 Monocytes # 1.8 H Eosinophils # 0.0 Basophils # 0.1 Nucleated Red Blood Cells # 0.0 Sodium Level 142 Potassium Level 3.6 Chloride Level 104 Carbon Dioxide Level 31 Anion Gap 7 Blood Urea Nitrogen 3 L Creatinine 0.68 Est Glomerular Filtrat Rate mL/min > 60 Glucose Level 117 Calcium Level 8.7 Phosphorus Level 2.6 Magnesium Level 2.1 Subjective 24 Hr Interval Summary Free Text/Dictation Low-grade fever. Still has marked scrotal swelling No BM yet Exam/Review of Systems Exam Vitals Vital Signs Date Temp Pulse Resp B/P (MAP) Pulse Ox O2 O2 Flow FiO2 Time Delivery Rate 01/20/19 100.2 112 18 128/70 93 Room Air 07:59 (89) 01/17/19 20:34 Intake and Output 01/19/19 01/19/19 01/20/19 1515:00 23:00 07:00 IntakeIntake Total 680 ml 100 ml 200 ml BalanceBalance 680 ml 100 ml 200 ml Exam Rt inguinal edema++, swelling Results Results 24hrs Laboratory Tests Test 01/20/19 05:01 White Blood Count 13.3 H Red Blood Count 2.80 L Hemoglobin 7.9 L Hematocrit 24.2 L Mean Corpuscular Volume 86.4 Mean Corpuscular Hemoglobin 28.2 L Mean Corpuscular Hemoglobin Concent 32.6 Red Cell Distribution Width 12.5 Platelet Count 240 Mean Platelet Volume 9.9 Immature Granulocytes % 0.500 H Neutrophils % 74.1 Lymphocytes % 11.5 L Monocytes % 13.4 H Eosinophils % 0.1 Basophils % 0.4 Nucleated Red Blood Cells % 0.0 Immature Granulocytes # 0.070 H Neutrophils # 9.9 H Lymphocytes # 1.5 Monocytes # 1.8 H Eosinophils # 0.0 Basophils # 0.1 Nucleated Red Blood Cells # 0.0 Sodium Level 142 Potassium Level 3.6 Chloride Level 104 Carbon Dioxide Level 31 Anion Gap 7 Blood Urea Nitrogen 3 L Creatinine 0.68 Est Glomerular Filtrat Rate mL/min > 60 Glucose Level 117 Calcium Level 8.7 Phosphorus Level 2.6 Magnesium Level 2.1 Medications Medication Current Medications Morphine Sulfate (morphine) 1 mg Q6H PRN IV pain Last administered on 01/19/19at 05:42; Admin Dose 1 MG; Start 01/17/19 at 11:30 Piperacillin Sod/ Tazobactam Sod 100 ml @ 200 mls/hr Q6 IVPB Last administered on 01/20/19at 06:32; Admin Dose 200 MLS/HR; Start 01/17/19 at 12:00 Ondansetron HCl (Zofran Inj) 4 mg Q6H PRN IV NAUSEA AND/OR VOMITING Last administered on 01/17/19at 21:20; Admin Dose 4 MG; Start 01/17/19 at 16:00 Acetaminophen/ Hydrocodone Bitart ([place] (5/325)) 1 tab Q4H PRN PO MODERATE PAIN LEVEL 4-6 Last administered on 01/20/19at 03:24; Admin Dose 1 TAB; Start at 10:30 Famotidine (Pepcid) 20 mg BID PO Last administered on 01/20/19at 08:44; Admin Dose 20 MG; Start 01/19/19 at 09:00 HANH MOORE MD January 20, 2019 11:06
[2019-01-20 14:25] VITALS: BP 117/67; PULSE 104; RESP 18
[2019-01-20 19:10] VITALS: BP 155/84; PULSE 103; RESP 18
[2019-01-21 01:15] VITALS: BP 132/71; PULSE 103; RESP 18
[2019-01-21] MEDS: PIPER-TAZO 3.375 GM IV (PMX) 100 ML IVPB SCH ×3 (05:42→17:25)
[2019-01-21 07:02] VITALS: BP 127/78; PULSE 112; RESP 18
[2019-01-21] MEDS: FAMOTIDINE 20 MG TAB PO SCH ×2 (08:39→21:03)
--- NOTE | 2019-01-21 11:29 | PN ---
Date/Time of Note Date/Time of Note DATE: 01/21/19 TIME: 11:26 Assessment/Plan VTE Prophylaxis Risk score (from Ns)>0 risk: 3 SCD applied (from Ns): Yes Pharmacological prophylaxis: NA/contraindicated Pharm contraindication: low risk/ambulating Lines/Catheters IV Catheter Type (from [facility]): Saline Lock Urinary Cath still in place: No Assessment/Plan Assessment/Plan ssessment/Plan 1 SIRS with leukkocytosis 2. Right direct incarcerated inguinal hernia. CT scan: Apparent incarcerated omental adipose tissue and vasculature within a large right inguinal hernia, resulting in generalized inflammation of the right side of the omentum extending upward nearly to the level of the caudal tip of the liver. No evidence of bowel obstruction or perforation. No evidence of urinary tract stone or obstruction. s/p RIHR c Ovitex mesh Partial omentectomy POD #4 3. Hx of hernia for one year 8. Overweight Plan -CT A+P ON 01/20/19 with interval postsurgical changes from right inguinal hernia repair. There is small complex free fluid and a small hematoma within the right scrotum and right inguinal canal. Small volume complex free fluid is seen within the pelvis and along the liver and spleen. No active extravasation of contrast is noted. Continued close clinical follow-up is advised. Consider serial ultrasound imaging or evaluation with CT if symptoms fail to resolve.hb stable - management per surgery -Continue with Zosyn -Ambulate -Pain control - wbc 14 today > cw monitor and hb stable Result Diagram: 01/21/19 0503 01/20/19 0501 Results 24hrs Laboratory Tests Test 01/20/19 17:35 01/21/19 01:03 01/21/19 05:03 Hemoglobin 8.3 L 8.0 L 8.1 L Hematocrit 24.7 L 23.5 L 24.3 L White Blood Count 14.4 H Red Blood Count 2.83 L Mean Corpuscular Volume 85.9 Mean Corpuscular Hemoglobin 28.6 L Mean Corpuscular Hemoglobin Concent 33.3 Red Cell Distribution Width 12.4 Platelet Count 288 Mean Platelet Volume 9.5 Immature Granulocytes % 0.600 H Neutrophils % 73.2 Lymphocytes % 11.8 L Monocytes % 13.7 H Eosinophils % 0.3 Basophils % 0.4 Nucleated Red Blood Cells % 0.0 Immature Granulocytes # 0.090 H Neutrophils # 10.5 H Lymphocytes # 1.7 Monocytes # 2.0 H Eosinophils # 0.1 Basophils # 0.1 Nucleated Red Blood Cells # 0.0 Calcium Level 9.2 Magnesium Level 2.3 Subjective 24 Hr Interval Summary Free Text/Dictation Patient had bowel movement yesterday Still with a persistent right scrotal swelling Exam/Review of Systems Exam Vitals Vital Signs Date Temp Pulse Resp B/P (MAP) Pulse Ox O2 O2 Flow FiO2 Time Delivery Rate 01/21/19 98.7 112 18 127/78 96 Room Air 07:02 (94) 01/21/19 2.0 01:15 Intake and Output 01/20/19 01/20/19 01/21/19 1515:00 23:00 07:00 IntakeIntake Total 780 ml 300 ml 440 ml BalanceBalance 780 ml 300 ml 440 ml Exam Rt inguinal edema++, swelling Results Results 24hrs Laboratory Tests Test 01/20/19 17:35 01/21/19 01:03 01/21/19 05:03 Hemoglobin 8.3 L 8.0 L 8.1 L Hematocrit 24.7 L 23.5 L 24.3 L White Blood Count 14.4 H Red Blood Count 2.83 L Mean Corpuscular Volume 85.9 Mean Corpuscular Hemoglobin 28.6 L Mean Corpuscular Hemoglobin Concent 33.3 Red Cell Distribution Width 12.4 Platelet Count 288 Mean Platelet Volume 9.5 Immature Granulocytes % 0.600 H Neutrophils % 73.2 Lymphocytes % 11.8 L Monocytes % 13.7 H Eosinophils % 0.3 Basophils % 0.4 Nucleated Red Blood Cells % 0.0 Immature Granulocytes # 0.090 H Neutrophils # 10.5 H Lymphocytes # 1.7 Monocytes # 2.0 H Eosinophils # 0.1 Basophils # 0.1 Nucleated Red Blood Cells # 0.0 Calcium Level 9.2 Magnesium Level 2.3 Medications Medication Current Medications Morphine Sulfate (morphine) 1 mg Q6H PRN IV pain Last administered on 01/19/19at 05:42; Admin Dose 1 MG; Start 01/17/19 at 11:30 Piperacillin Sod/ Tazobactam Sod 100 ml @ 200 mls/hr Q6 IVPB Last administered on 01/21/19at 05:42; Admin Dose 200 MLS/HR; Start 5/11/19 at 12:00 Ondansetron HCl (Zofran Inj) 4 mg Q6H PRN IV NAUSEA AND/OR VOMITING Last administered on 01/17/19at 21:20; Admin Dose 4 MG; Start 01/17/19 at 16:00 Acetaminophen/ Hydrocodone Bitart ([place] (5/325)) 1 tab Q4H PRN PO MODERATE PAIN LEVEL 4-6 Last administered on 01/20/19 11:54; Admin Dose 1 TAB; Start 01/18/19 at 10:30 Famotidine (Pepcid) 20 mg BID PO Last administered on 01/21/19at 08:39; Admin Dose 20 MG; Start 01/19/19 at 09:00 HANH MOORE MD January 21, 2019 11:29
[2019-01-21 15:26] VITALS: BP 134/70; PULSE 103; RESP 18
[2019-01-21] MEDS: HYDROCODONE/APAP (5/325) TAB PO PRN (15:39)
[2019-01-21] MEDS: SOD CHLORIDE 0.9% 1,000 ML IV SCH (16:41)
[2019-01-21 19:25] VITALS: BP 133/75; PULSE 96; RESP 18
[2019-01-22] MEDS: PIPER-TAZO 3.375 GM IV (PMX) 100 ML IVPB SCH ×4 (00:25→17:54)
--- NOTE | 2019-01-22 01:19 | PN ---
Date/Time of Note Date/Time of Note DATE: 01/19/19 TIME: 22:14 Assessment/Plan Lines/Catheters IV Catheter Type (from [facility]): Saline Lock [place] in Place (from [facility]): No Assessment/Plan Chief Complaint/Hosp Course 1. Strangulated omentum in right inguinal hernia s/p open repair with hybrid mesh, partial omentectomy on 01/18/2019; Fever and right scrotal swelling -Continue antibiotics -IS -ambulate -ice pack to surgical site -advance diet as tolerated -CT -towel to elevate scrotum 2. Leukocytosis: Improving however still with fevers -Trend -As above 3. Hypochromic anemia: -Monitor and transfuse as needed 4. Overweight BMI: -diet and exercise optimization -encourage weight loss Thank you, Late entry 01/19 Subjective 24 Hr Interval Summary Low grade fevers and tachycardia. Scrotal swelling. No chills, sob, congested cough, cp, palpitations, chao, dizziness, n/v/d/dysuria. Min bowel function. Labs noted. Exam/Review of Systems Vital Signs Vitals Vital Signs Date Temp Pulse Resp B/P (MAP) Pulse Ox O2 O2 Flow FiO2 Time Delivery Rate 01/21/19 99.3 96 18 133/75 97 19:25 (94) 01/21/19 Room Air 15:26 01/21/19 2.0 01:15 Intake and Output 01/21/19 01/21/19 01/22/19 1515:00 23:00 07:00 IntakeIntake Total 100 ml 720 ml OutputOutput Total 450 ml BalanceBalance 100 ml 720 ml -450 ml Exam Free Text/Dictation Constitutional: alert, oriented, well developed Psych: nl mood/affect Head: normocephalic, atraumatic Eyes: nl conjunctiva, EOMI, nl lids, nl sclera ENMT: nl external ears & nose, nl lips & teeth, mucosa pink and moist Neck: supple, non-tender Respiratory: normal air movement; No congested cough Cardiovascular: regular rate and rhythm, nl pulses; No edema Gastrointestinal: soft, tender (Right inguinal incision site: Incision site clean without drainage/discoloration/bruising); No distended Genitourinary - Male: No nl scrotum (Right scrotal swelling) Musculoskeletal: nl extremities to inspection, nl gait and stance Extremities: normal pulses Neurological: nl mental status, nl speech, nl strength Skin: No rash or lesions Lymph: No nl lymph nodes Results Result Diagram: 01/21/19 1159 01/20/19 0501 KWESI WORTHINGTON MD January 22, 2019 01:19
--- NOTE | 2019-01-22 01:21 | PN ---
Date/Time of Note Date/Time of Note DATE: 01/22/19 TIME: Assessment/Plan Lines/Catheters IV Catheter Type (from [facility]): Saline Lock [facility] in Place (from [facility]): No Assessment/Plan Chief Complaint/Hosp Course 1. Strangulated omentum in right inguinal hernia s/p open repair with hybrid mesh, partial omentectomy on 01/18/2019; Fever and right scrotal swelling. CT noted. -Continue antibiotics -IS -ambulate -ice pack to surgical site -advance diet as tolerated -towel to elevate scrotum 2. Leukocytosis -Trend -As above 3. Hypochromic anemia: -Monitor and transfuse as needed 4. Overweight BMI: -diet and exercise optimization -encourage weight loss Thank you, Late entry 01/21 Subjective [address] noted with fluid but no extravasation. No bowel issues. Fevers and tachycardia but patient states he feels lot better. Scrotal swelling persist. No chills, sob, congested cough, cp, palpitations, chao, dizziness, n/v/d/dysuria. Bowel function. Labs noted. Exam/Review of Systems Vital Signs Vitals Vital Signs Date Temp Pulse Resp B/P (MAP) Pulse Ox O2 O2 Flow FiO2 Time Delivery Rate 01/21/19 99.3 96 18 133/75 97 19:25 (94) 01/21/19 Room Air 15:26 01/21/19 2.0 01:15 Intake and Output 01/21/19 01/21/19 01/22/19 1515:00 23:00 07:00 IntakeIntake Total 100 ml 720 ml OutputOutput Total 450 ml BalanceBalance 100 ml 720 ml -450 ml Exam Free Text/Dictation Constitutional: alert, oriented, well developed Psych: nl mood/affect Head: normocephalic, atraumatic Eyes: nl conjunctiva, EOMI, nl lids, nl sclera ENMT: nl external ears & nose, nl lips & teeth, mucosa pink and moist Neck: supple, non-tender Respiratory: normal air movement; No congested cough Cardiovascular: regular rate and rhythm, nl pulses; No edema Gastrointestinal: soft, tender (Right inguinal incision site: Incision site clean without drainage/discoloration/bruising); No distended Genitourinary - Male: No nl scrotum (Right scrotal swelling) Musculoskeletal: nl extremities to inspection, nl gait and stance Extremities: normal pulses Neurological: nl mental status, nl speech, nl strength Skin: No rash or lesions Lymph: No nl lymph nodes Results Result Diagram: 01/21/19 1159 01/20/19 0501 KWESI WORTHINGTON MD January 22, 2019 01:21
[2019-01-22 02:10] VITALS: BP 124/63; PULSE 96; RESP 20
[2019-01-22] MEDS: HYDROCODONE/APAP (5/325) TAB PO PRN ×3 (05:39→15:12)
[2019-01-22 07:15] VITALS: BP 133/68; PULSE 90; RESP 18
[2019-01-22] MEDS: SOD CHLORIDE 0.9% 1,000 ML IV SCH (07:18)
[2019-01-22] MEDS: FAMOTIDINE 20 MG TAB PO SCH ×2 (08:18→19:54)
--- NOTE | 2019-01-22 11:58 | PN ---
Date/Time of Note Date/Time of Note DATE: 01/22/19 TIME: 11:58 Assessment/Plan VTE Prophylaxis Risk score (from Ns)>0 risk: 3 SCD applied (from Ns): Yes Pharmacological prophylaxis: NA/contraindicated Pharm contraindication: low risk/ambulating Lines/Catheters IV Catheter Type (from [facility]): Saline Lock Urinary Cath still in place: No Assessment/Plan Assessment/Plan 1 SIRS with leukkocytosis likely secondary to infected hematoma 2. Right direct incarcerated inguinal hernia. CT scan: Apparent incarcerated omental adipose tissue and vasculature within a large right inguinal hernia, resulting in generalized inflammation of the right side of the omentum extending upward nearly to the level of the caudal tip of the liver. No evidence of bowel obstruction or perforation. No evidence of urinary tract stone or obstruction. s/p RIHR c Ovitex mesh Partial omentectomy POD #5 3. Hx of hernia for one year 4. Overweight Plan -CT A+P ON 01/20/19 with interval postsurgical changes from right inguinal hernia repair. There is small complex free fluid and a small hematoma within the right scrotum and right inguinal canal. Small volume complex free fluid is seen within the pelvis and along the liver and spleen. No active extravasation of contrast is noted. Continued close clinical follow-up is advised. Consider serial ultrasound imaging or evaluation with CT if symptoms fail to resolve.hb stable , patient continues to have fevers, discussed with surgery patient might have infected hematoma with likely need to have drainage - management per surgery -tyenolol prn fever -Continue with Zosyn -Ambulate -Pain control - wbc 14 today > cw monitor and hb stable Result Diagram: 01/22/19 0443 01/20/19 0501 Results 24hrs Laboratory Tests Test 01/21/19 11:59 01/22/19 04:43 Hemoglobin 8.5 L 8.4 L Hematocrit 25.7 L 25.9 L White Blood Count 14.0 H Red Blood Count 3.00 L Mean Corpuscular Volume 86.3 Mean Corpuscular Hemoglobin 28.0 L Mean Corpuscular Hemoglobin Concent 32.4 Red Cell Distribution Width 12.6 Platelet Count 352 # Mean Platelet Volume 9.2 Immature Granulocytes % 0.900 H Neutrophils % 70.1 Lymphocytes % 14.9 L Monocytes % 12.8 H Eosinophils % 0.9 Basophils % 0.4 Nucleated Red Blood Cells % 0.1 H Immature Granulocytes # 0.120 H Neutrophils # 9.8 H Lymphocytes # 2.1 Monocytes # 1.8 H Eosinophils # 0.1 Basophils # 0.1 Nucleated Red Blood Cells # 0.0 Subjective 24 Hr Interval Summary Free Text/Dictation Patient continues to have fever Exam/Review of Systems Exam Vitals Vital Signs Date Temp Pulse Resp B/P (MAP) Pulse Ox O2 O2 Flow FiO2 Time Delivery Rate 01/22/19 98.7 90 18 133/68 96 07:15 (89) 01/21/19 Room Air 15:26 01/21/19 2.0 01:15 Intake and Output 01/21/19 01/21/19 01/22/19 1515:00 23:00 07:00 IntakeIntake Total 100 ml 720 ml 1075 ml OutputOutput Total 450 ml BalanceBalance 100 ml 720 ml 625 ml Exam Rt inguinal edema++, swelling, hard Results Results 24hrs Laboratory Tests Test 01/21/19 11:59 01/22/19 04:43 Hemoglobin 8.5 L 8.4 L Hematocrit 25.7 L 25.9 L White Blood Count 14.0 H Red Blood Count 3.00 L Mean Corpuscular Volume 86.3 Mean Corpuscular Hemoglobin 28.0 L Mean Corpuscular Hemoglobin Concent 32.4 Red Cell Distribution Width 12.6 Platelet Count 352 # Mean Platelet Volume 9.2 Immature Granulocytes % 0.900 H Neutrophils % 70.1 Lymphocytes % 14.9 L Monocytes % 12.8 H Eosinophils % 0.9 Basophils % 0.4 Nucleated Red Blood Cells % 0.1 H Immature Granulocytes # 0.120 H Neutrophils # 9.8 H Lymphocytes # 2.1 Monocytes # 1.8 H Eosinophils # 0.1 Basophils # 0.1 Nucleated Red Blood Cells # 0.0 Medications Medication Current Medications Morphine Sulfate (morphine) 1 mg Q6H PRN IV pain Last administered on 01/19/19at 05:42; Admin Dose 1 MG; Start 01/17/19 at 11:30 Piperacillin Sod/ Tazobactam Sod 100 ml @ 200 mls/hr Q6 IVPB Last administered on 01/22/19at 05:40; Admin Dose 200 MLS/HR; Start 01/17/19 at 12:00 Ondansetron HCl (Zofran Inj) 4 mg Q6H PRN IV NAUSEA AND/OR VOMITING Last administered on 01/17/19at 21:20; Admin Dose 4 MG; Start 01/17/19 at 16:00 Acetaminophen/ Hydrocodone Bitart ([place]oyd (5/325)) 1 tab Q4H PRN PO MODERATE PAIN LEVEL 4-6 Last administered on 01/22/19at 05:39; Admin Dose 1 TAB; Start 01/18/19 at 10:30 Famotidine (Pepcid) 20 mg BID PO Last administered on 01/22/19at 08:18; Admin Dose 20 MG; Start 01/19/19 at 09:00 Sodium Chloride 1,000 ml @ 70 mls/hr [id number] IV Last administered on 01/21/19at 16:41; Admin Dose 70 MLS/HR; Start 01/21/19 at 17:00 HANH MOORE MD January 22, 2019 11:58
[2019-01-22 13:11] VITALS: BP 132/73; PULSE 102; RESP 18
--- NOTE | 2019-01-22 18:17 | PN ---
Date/Time of Note Date/Time of Note DATE: 01/22/19 TIME: 18:11 Assessment/Plan Lines/Catheters IV Catheter Type (from [facility]): Peripheral IV Taylor in Place (from [facility]): No Assessment/Plan Chief Complaint/Hosp Course 1. Strangulated omentum in right inguinal hernia s/p open repair with hybrid mesh, partial omentectomy on 01/18/2019; Fever and right scrotal swelling. CT noted. -Continue antibiotics -IS -ambulate -ice pack to surgical site and scrotum -advance diet as tolerated -towel to elevate scrotum -procal, crp, esr -if continues to be febrile will re-image 2. Leukocytosis -Trend -As above 3. Hypochromic anemia: -Monitor and transfuse as needed 4. Overweight BMI: -diet and exercise optimization -encourage weight loss Thank you. Patient seen and examined in collaboration with Dr. Grabiel Ardon. Subjective 24 Hr Interval Summary Feels well. Intermittent fevers. Scrotal swelling improved. No chills, sob, congested cough, cp, palpitations, chao, dizziness, n/v/d/dysuria. Exam/Review of Systems Vital Signs Vitals Vital Signs Date Temp Pulse Resp B/P (MAP) Pulse Ox O2 O2 Flow FiO2 Time Delivery Rate 01/22/19 99.4 16:05 01/22/19 102 18 132/73 97 13:11 (92) 01/21/19 Room Air 15:26 01/21/19 2.0 01:15 Intake and Output 01/21/19 01/21/19 01/22/19 1515:00 23:00 07:00 IntakeIntake Total 100 ml 720 ml 1075 ml OutputOutput Total 450 ml BalanceBalance 100 ml 720 ml 625 ml Exam Free Text/Dictation Constitutional: alert, oriented, well developed Psych: nl mood/affect Head: normocephalic, atraumatic Eyes: nl conjunctiva, EOMI, nl lids, nl sclera ENMT: nl external ears & nose, nl lips & teeth, mucosa pink and moist Neck: supple, non-tender Respiratory: normal air movement; No congested cough Cardiovascular: regular rate and rhythm, nl pulses; No edema Gastrointestinal: soft, tender (Right inguinal incision site: Incision site clean without drainage/discoloration/bruising); No distended Genitourinary - Male: No nl scrotum (Right scrotal swelling- improved) Musculoskeletal: nl extremities to inspection, nl gait and stance Extremities: normal pulses Neurological: nl mental status, nl speech, nl strength Skin: No rash or lesions Lymph: No nl lymph nodes Results Result Diagram: 01/22/19 0443 01/20/19 0501 EBONI ZARAGOZA NP January 22, 2019 18:17
[2019-01-22 19:40] VITALS: BP 135/73; PULSE 98; RESP 18
[2019-01-22] MEDS: ACETAMINOPHEN 325 MG TAB PO PRN (19:54)
[2019-01-23] MEDS: PIPER-TAZO 3.375 GM IV (PMX) 100 ML IVPB SCH ×4 (00:23→17:41)
[2019-01-23] MEDS: SOD CHLORIDE 0.9% 1,000 ML IV SCH ×3 (01:53→21:19)
[2019-01-23 02:22] VITALS: BP 114/75; PULSE 91; RESP 18
[2019-01-23 07:35] VITALS: BP 120/66; PULSE 92; RESP 18
[2019-01-23] MEDS: FAMOTIDINE 20 MG TAB PO SCH ×2 (08:28→21:19)
[2019-01-23] MEDS ORDERED: POTASSIUM CHLORIDE (SR) 20 MEQ TAB PO STA (13:24)
--- NOTE | 2019-01-23 14:54 | PN ---
Date/Time of Note Date/Time of Note DATE: 01/23/19 TIME: 14:52 Assessment/Plan VTE Prophylaxis Risk score (from Ns)>0 risk: 3 SCD applied (from [facility] [place] Yes SCD contraindicated: low risk/ambulating Pharmacological prophylaxis: NA/contraindicated Pharm contraindication: low risk/ambulating Lines/Catheters IV Catheter Type (from [email or web address] Peripheral IV Urinary Cath still in place: No Assessment/Plan Hospital Course 1. SIRS 2. Right direct incarcerated inguinal hernia. CT scan: Apparent incarcerated omental adipose tissue and vasculature within a large right inguinal hernia, resulting in generalized inflammation of the right side of the omentum extending upward nearly to the level of the caudal tip of the liver. No evidence of bowel obstruction or perforation. No evidence of urinary tract stone or obstruction. Testicular US is normal 3. Hx of hernia for one year 4. Overweight 5. INfected hematoma Assessment/Plan -pothemanth. supplemented -CT A+P ON 01/20/19 with interval postsurgical changes from right inguinal hernia repair. There is small complex free fluid and a small hematoma within the right scrotum and right inguinal canal. Small volume complex free fluid is seen within the pelvis and along the liver and spleen. No active extravasation of contrast is noted. Continued close clinical follow-up is advised. Consider serial ultrasound imaging or evaluation with CT if symptoms fail to resolve. -hb stable , patient continues to have fevers, discussed with surgery patient might have infected hematoma with likely need to have drainage - management per surgery -Tylenol prn fever -Continue with Zosyn -Ambulate -Pain control - wbc 14,3 today > cw monitor and hb stable Result Diagram: 01/23/19 0418 01/23/19 0418 Results 24hrs Laboratory Tests Test 01/22/19 19:10 01/23/19 04:18 Erythrocyte Sedimentation Rate 125 H C-Reactive Protein 18.2 H Procalcitonin 0.17 H White Blood Count 14.4 H Red Blood Count 3.05 L Hemoglobin 8.6 L Hematocrit 26.0 L Mean Corpuscular Volume 85.2 Mean Corpuscular Hemoglobin 28.2 L Mean Corpuscular Hemoglobin Concent 33.1 Red Cell Distribution Width 12.7 Platelet Count 410 Mean Platelet Volume 9.1 Immature Granulocytes % 1.500 H Neutrophils % 70.5 Lymphocytes % 14.2 L Monocytes % 12.2 H Eosinophils % 1.2 Basophils % 0.4 Nucleated Red Blood Cells % 0.2 H Immature Granulocytes # 0.220 H Neutrophils # 10.2 H Lymphocytes # 2.0 Monocytes # 1.8 H Eosinophils # 0.2 Basophils # 0.1 Nucleated Red Blood Cells # 0.0 Sodium Level 140 Potassium Level 3.4 L Chloride Level 103 Carbon Dioxide Level 29 Anion Gap 8 Blood Urea Nitrogen 7 Creatinine 0.61 Est Glomerular Filtrat Rate mL/min > 60 Glucose Level 124 Calcium Level 8.6 Phosphorus Level 3.7 Magnesium Level 2.3 Subjective 24 Hr Interval Summary Constitutional: no complaints Exam/Review of Systems Exam Vitals Vital Signs Date Temp Pulse Resp B/P (MAP) Pulse Ox O2 O2 Flow FiO2 Time Delivery Rate 01/23/19 98.2 92 18 120/66 96 07:35 (84) 01/21/19 Room Air 15:26 01/21/19 2.0 01:15 Intake and Output 01/22/19 01/22/19 01/23/19 1515:00 23:00 07:00 IntakeIntake Total 100 ml 500 ml 790 ml OutputOutput Total 800 ml BalanceBalance 100 ml 500 ml -10 ml Constitutional: alert, oriented Respiratory: clear to auscultation Cardiovascular: regular rate and rhythm Gastrointestinal: soft Genitourinary - Male: nl penis, other (surg scar righ inguinal area) Results Results 24hrs Laboratory Tests Test 01/22/19 19:10 01/23/19 04:18 Erythrocyte Sedimentation Rate 125 H C-Reactive Protein 18.2 H Procalcitonin 0.17 H White Blood Count 14.4 H Red Blood Count 3.05 L Hemoglobin 8.6 L Hematocrit 26.0 L Mean Corpuscular Volume 85.2 Mean Corpuscular Hemoglobin 28.2 L Mean Corpuscular Hemoglobin Concent 33.1 Red Cell Distribution Width 12.7 Platelet Count 410 Mean Platelet Volume 9.1 Immature Granulocytes % 1.500 H Neutrophils % 70.5 Lymphocytes % 14.2 L Monocytes % 12.2 H Eosinophils % 1.2 Basophils % 0.4 Nucleated Red Blood Cells % 0.2 H Immature Granulocytes # 0.220 H Neutrophils # 10.2 H Lymphocytes # 2.0 Monocytes # 1.8 H Eosinophils # 0.2 Basophils # 0.1 Nucleated Red Blood Cells # 0.0 Sodium Level 140 Potassium Level 3.4 L Chloride Level 103 Carbon Dioxide Level 29 Anion Gap 8 Blood Urea Nitrogen 7 Creatinine 0.61 Est Glomerular Filtrat Rate mL/min > 60 Glucose Level 124 Calcium Level 8.6 Phosphorus Level 3.7 Magnesium Level 2.3 Medications Medication Current Medications Morphine Sulfate (morphine) 1 mg Q6H PRN IV pain Last administered on 01/19/19 05:42; Admin Dose 1 MG; Start 01/17/19 at 11:30 Piperacillin Sod/ Tazobactam Sod 100 ml @ 200 mls/hr Q6 IVPB Last administered on 01/23/19 11:57; Admin Dose 200 MLS/HR; Start 01/17/19 at 12:00 Ondansetron HCl (Zofran Inj) 4 mg Q6H PRN IV NAUSEA AND/OR VOMITING Last administered on 01/17/19 21:20; Admin Dose 4 MG; Start 01/17/19 at 16:00 Acetaminophen/ Hydrocodone Bitart ([place] (5/325)) 1 tab Q4H PRN PO MODERATE PAIN LEVEL 4-6 Last administered on 01/22/19 15:12; Admin Dose 1 TAB; Start 01/18/19 at 10:30 Famotidine (Pepcid) 20 mg BID PO Last administered on 01/23/19 08:28; Admin Dose 20 MG; Start 01/19/19 at 09:00 Sodium Chloride 1,000 ml @ 70 mls/hr [id number] IV Last administered on 01/23/19 01:53; Admin Dose 70 MLS/HR; Start 01/21/19 at 17:00 Acetaminophen (Tylenol Tab) 650 mg Q6H PRN PO MILD PAIN(1-3)OR ELEVATED TEMP Last administered on 01/22/19 19:54; Admin Dose 650 MG; Start 01/22/19 at 16:00 RAKEHS BANDA January 23, 2019 14:54
[2019-01-23 15:03] VITALS: BP 119/62; PULSE 78; RESP 19
[2019-01-23] MEDS: ACETAMINOPHEN 325 MG TAB PO PRN (15:12)
--- NOTE | 2019-01-23 18:25 | PN ---
Date/Time of Note Date/Time of Note DATE: 01/23/19 TIME: 18:25 Assessment/Plan Lines/Catheters IV Catheter Type (from [facility]): Peripheral IV Taylor in Place (from [facility]): No Assessment/Plan Chief Complaint/Hosp Course 1. Strangulated omentum in right inguinal hernia s/p open repair with hybrid mesh, partial omentectomy on 01/18/2019; Fever and right scrotal swelling. CT noted. -Continue antibiotics -IS -ambulate -ice pack to surgical site and scrotum -advance diet as tolerated -towel to elevate scrotum -CT w contrast 2. Leukocytosis -Trend -As above 3. Hypochromic anemia: -Monitor and transfuse as needed 4. Overweight BMI: -diet and exercise optimization -encourage weight loss 5. Jaundice: -will check lfts Thank you. Patient seen and examined in collaboration with Dr. Grabiel Ardon. Subjective 24 Hr Interval Summary Feels well. Scrotal swelling with firm area. Low grade fever. No chills, sob, congested cough, cp, palpitations, chao, dizziness, n/v/d/dysuria. Exam/Review of Systems Vital Signs Vitals Vital Signs Date Temp Pulse Resp B/P (MAP) Pulse Ox O2 O2 Flow FiO2 Time Delivery Rate 01/23/19 98.3 16:15 01/23/19 78 19 119/62 98 15:03 (81) 01/21/19 Room Air 15:26 01/21/19 2.0 01:15 Intake and Output 01/22/19 01/22/19 01/23/19 1515:00 23:00 07:00 IntakeIntake Total 100 ml 500 ml 790 ml OutputOutput Total 800 ml BalanceBalance 100 ml 500 ml -10 ml Exam Free Text/Dictation Constitutional: alert, oriented, well developed Psych: nl mood/affect Head: normocephalic, atraumatic Eyes: nl conjunctiva, EOMI, nl lids, jaundice ENMT: nl external ears & nose, nl lips & teeth, mucosa pink and moist Neck: supple, non-tender Respiratory: normal air movement; No congested cough Cardiovascular: regular rate and rhythm, nl pulses; No edema Gastrointestinal: soft, tender (Right inguinal incision site: Incision site clean without drainage/discoloration/bruising); No distended Genitourinary - Male: No nl scrotum (Right scrotal swelling- improved) Musculoskeletal: nl extremities to inspection, nl gait and stance Extremities: normal pulses Neurological: nl mental status, nl speech, nl strength Skin: No rash or lesions Lymph: No nl lymph nodes Results Result Diagram: 01/23/19 0418 01/23/19 0418 EBONI ZARAGOZA NP January 23, 2019 18:25
[2019-01-23] MEDS ORDERED: IOHEXOL 14.3 MG(I)/ML (ADULT) BTL PO ONE (19:00)
[2019-01-23 20:24] VITALS: BP 127/65; PULSE 72; RESP 18
[2019-01-24] MEDS: PIPER-TAZO 3.375 GM IV (PMX) 100 ML IVPB SCH ×5 (00:33→23:22)
[2019-01-24 01:53] VITALS: BP 118/65; PULSE 70; RESP 18
[2019-01-24 06:05] VITALS: BP 118/60; PULSE 72; RESP 18
[2019-01-24] MEDS: IOHEXOL 14.3 MG(I)/ML (ADULT) BTL PO ONE ×2 (07:00→10:00)
[2019-01-24 07:42] VITALS: BP 122/65; PULSE 80; RESP 17
[2019-01-24] MEDS: FAMOTIDINE 20 MG TAB PO SCH ×2 (08:21→21:24)
--- NOTE | 2019-01-24 10:41 | PN ---
Date/Time of Note Date/Time of Note DATE: 01/24/19 TIME: 10:37 Assessment/Plan VTE Prophylaxis Risk score (from Nsg)>0 risk: 3 SCD applied (from Ns): Yes SCD contraindicated: low risk/ambulating Pharmacological prophylaxis: NA/contraindicated Pharm contraindication: surgical contra Lines/Catheters IV Catheter Type (from [facility]): Peripheral IV Urinary Cath still in place: No Assessment/Plan Hospital Course 1. SIRS, WBC up 2. s/p herniorrhaphy by dr Ardon 3. Hx of hernia for one year 4. Overweight 5. right inguinal post operative fluid /hematoma/seroma collection Assessment/Plan -elevate scrotum while laying down -while ambulate keep garcía -no fever 2 days -hb stable - management per surgery -Continue with Zosyn -Ambulate -Pain control - wbc 15 today > cw monitor and hb stable Result Diagram: 01/24/19 0441 01/24/19 0441 Results 24hrs Laboratory Tests Test 01/24/19 04:41 White Blood Count 15.4 H Red Blood Count 3.08 L Hemoglobin 8.7 L Hematocrit 26.6 L Mean Corpuscular Volume 86.4 Mean Corpuscular Hemoglobin 28.2 L Mean Corpuscular Hemoglobin Concent 32.7 Red Cell Distribution Width 13.0 Platelet Count 458 H Mean Platelet Volume 8.8 Immature Granulocytes % 2.100 H Neutrophils % 71.2 Lymphocytes % 13.5 L Monocytes % 11.6 H Eosinophils % 1.1 Basophils % 0.5 Nucleated Red Blood Cells % 0.2 H Immature Granulocytes # 0.330 H Neutrophils # 11.0 H Lymphocytes # 2.1 Monocytes # 1.8 H Eosinophils # 0.2 Basophils # 0.1 Nucleated Red Blood Cells # 0.0 Sodium Level 138 Potassium Level 4.0 Chloride Level 103 Carbon Dioxide Level 29 Anion Gap 6 Blood Urea Nitrogen 7 Creatinine 0.67 Est Glomerular Filtrat Rate mL/min > 60 Glucose Level 106 Calcium Level 8.9 Subjective 24 Hr Interval Summary Constitutional: no complaints, improved Genitourinary: other (feelinjg right inguinal area hevyness) Exam/Review of Systems Exam Vitals Vital Signs Date Temp Pulse Resp B/P (MAP) Pulse Ox O2 O2 Flow FiO2 Time Delivery Rate 01/24/19 98.5 80 17 122/65 98 Room Air 07:42 (84) 01/21/19 2.0 01:15 Intake and Output 01/23/19 01/23/19 01/24/19 1414:59 22:59 06:59 IntakeIntake Total 100 ml 1430 ml 1500 ml OutputOutput Total 750 ml BalanceBalance 100 ml 1430 ml 750 ml Constitutional: alert, oriented Respiratory: clear to auscultation Cardiovascular: regular rate and rhythm Gastrointestinal: soft Genitourinary - Male: nl penis, other (rigth side scrotum swollen, hard, postopr scar is clean and dry) Results Results 24hrs Laboratory Tests Test 01/24/19 04:41 White Blood Count 15.4 H Red Blood Count 3.08 L Hemoglobin 8.7 L Hematocrit 26.6 L Mean Corpuscular Volume 86.4 Mean Corpuscular Hemoglobin 28.2 L Mean Corpuscular Hemoglobin Concent 32.7 Red Cell Distribution Width 13.0 Platelet Count 458 H Mean Platelet Volume 8.8 Immature Granulocytes % 2.100 H Neutrophils % 71.2 Lymphocytes % 13.5 L Monocytes % 11.6 H Eosinophils % 1.1 Basophils % 0.5 Nucleated Red Blood Cells % 0.2 H Immature Granulocytes # 0.330 H Neutrophils # 11.0 H Lymphocytes # 2.1 Monocytes # 1.8 H Eosinophils # 0.2 Basophils # 0.1 Nucleated Red Blood Cells # 0.0 Sodium Level 138 Potassium Level 4.0 Chloride Level 103 Carbon Dioxide Level 29 Anion Gap 6 Blood Urea Nitrogen 7 Creatinine 0.67 Est Glomerular Filtrat Rate mL/min > 60 Glucose Level 106 Calcium Level 8.9 Medications Medication Current Medications Morphine Sulfate (morphine) 1 mg Q6H PRN IV pain Last administered on 01/19/19at 05:42; Admin Dose 1 MG; Start 01/17/19 at 11:30 Piperacillin Sod/ Tazobactam Sod 100 ml @ 200 mls/hr Q6 IVPB Last administered on 01/24/19at 06:01; Admin Dose 200 MLS/HR; Start 01/17/19 at 12:00 Ondansetron HCl (Zofran Inj) 4 mg Q6H PRN IV NAUSEA AND/OR VOMITING Last administered on 01/17/19at 21:20; Admin Dose 4 MG; Start 01/17/19 at 16:00 Acetaminophen/ Hydrocodone Bitart ([place] (5/325)) 1 tab Q4H PRN PO MODERATE PAIN LEVEL 4-6 Last administered on 01/22/19at 15:12; Admin Dose 1 TAB; Start 01/18/19 at 10:30 Famotidine (Pepcid) 20 mg BID PO Last administered on 01/24/19at 08:21; Admin Dose 20 MG; Start 01/19/19 at 09:00 Sodium Chloride 1,000 ml @ 70 mls/hr [id number] IV Last administered on 01/23/19at 21:19; Admin Dose 70 MLS/HR; Start 01/21/19 at 17:00 Acetaminophen (Tylenol Tab) 650 mg Q6H PRN PO MILD PAIN(1-3)OR ELEVATED TEMP Last administered on 01/23/19at 15:12; Admin Dose 650 MG; Start 01/22/19 at 16:00 RAKESH BANDA January 24, 2019 10:41
[2019-01-24] MEDS ORDERED: SOD CHLORIDE 0.9% 100 ML ONE (11:32)
[2019-01-24] MEDS ORDERED: IOHEXOL 300MG/ML 150 ML BTL ONE (11:32)
[2019-01-24 14:49] VITALS: BP 123/68; PULSE 94; RESP 15
--- NOTE | 2019-01-24 15:22 | PN ---
Date/Time of Note Date/Time of Note DATE: 01/24/19 TIME: :19 Assessment/Plan Lines/Catheters IV Catheter Type (from [facility]): Peripheral IV Taylor in Place (from [facility]): No Assessment/Plan Chief Complaint/Hosp Course 1. Strangulated omentum in right inguinal hernia s/p open repair with hybrid mesh, partial omentectomy on 01/18/2019; Fever and right scrotal swelling. CT noted. -Continue antibiotics -IS -ambulate -ice pack to surgical site and scrotum -Scrotal support while ambulating -advance diet as tolerated -towel to elevate scrotum -CT w contrast> pending results 2. Leukocytosis -Trend -As above 3. Hypochromic anemia: -Monitor and transfuse as needed 4. Overweight BMI: -diet and exercise optimization -encourage weight loss 5. Jaundice: -will check lfts Thank you. Patient seen and examined in collaboration with Dr. Grabiel Ardon. Subjective 24 Hr Interval Summary Feels well. No fevers today. White count uptrending. No chills, sob, congested cough, cp, palpitations, chao, dizziness, nausea, vomiting, diarrhea, dysuria. Exam/Review of Systems Vital Signs Vitals Vital Signs Date Temp Pulse Resp B/P (MAP) Pulse Ox O2 O2 Flow FiO2 Time Delivery Rate 01/24/19 99.4 94 15 123/68 100 Room Air 14:49 (86) 01/21/19 2.0 01:15 Intake and Output 01/23/19 01/23/19 01/24/19 1515:00 23:00 07:00 IntakeIntake Total 100 ml 1430 ml 1500 ml OutputOutput Total 750 ml BalanceBalance 100 ml 1430 ml 750 ml Exam Free Text/Dictation Constitutional: alert, oriented, well developed Psych: nl mood/affect Head: normocephalic, atraumatic Eyes: nl conjunctiva, EOMI, nl lids, jaundice ENMT: nl external ears & nose, nl lips & teeth, mucosa pink and moist Neck: supple, non-tender Respiratory: normal air movement; No congested cough Cardiovascular: regular rate and rhythm, nl pulses; No edema Gastrointestinal: soft, tender (Right inguinal incision site: Incision site clean without drainage/discoloration/bruising); No distended Genitourinary - Male: No nl scrotum (Right scrotal swelling- improved) Musculoskeletal: nl extremities to inspection, nl gait and stance Extremities: normal pulses Neurological: nl mental status, nl speech, nl strength Skin: No rash or lesions Lymph: No nl lymph nodes Results Result Diagram: 01/24/19 04401/24/19 044 EBONI ZARAGOZA NP January 24, 2019 15:22
[2019-01-24] MEDS: SOD CHLORIDE 0.9% 1,000 ML IV SCH (16:52)
[2019-01-24 19:49] VITALS: BP 125/73; PULSE 99; RESP 18
[2019-01-25 01:06] VITALS: BP 126/64; PULSE 76; RESP 18
[2019-01-25] MEDS: PIPER-TAZO 3.375 GM IV (PMX) 100 ML IVPB SCH ×4 (05:50→22:41)
[2019-01-25 07:34] VITALS: BP 124/64; PULSE 89; RESP 15
[2019-01-25] MEDS: FAMOTIDINE 20 MG TAB PO SCH ×2 (08:49→21:00)
--- NOTE | 2019-01-25 12:37 | PN ---
Date/Time of Note Date/Time of Note DATE: 01/25/19 TIME: 12:30 Assessment/Plan Lines/Catheters IV Catheter Type (from [facility]): Saline Lock [facility] in Place (from [facility]): No Assessment/Plan Chief Complaint/Hosp Course 1. Strangulated omentum in right inguinal hernia s/p open repair with hybrid mesh, partial omentectomy on 01/18/2019; Fever and right scrotal swelling. CT noted> discussed w radiologist> possible testis infection/epididymitis -Continue antibiotics -IS -ambulate -ice pack to surgical site and scrotum -Scrotal support while ambulating -advance diet as tolerated -towel to elevate scrotum -US scrotum 2. Leukocytosis -Trend -As above 3. Hypochromic anemia: -Monitor and transfuse as needed 4. Overweight BMI: -diet and exercise optimization -encourage weight loss 5. Jaundice: -will check lfts Thank you. Patient seen and examined in collaboration with Dr. Grabiel Ardon. Subjective 24 Hr Interval Summary Feels better. Scrotal swelling minimally improving. Min temp. No chills, sob, congested cough, cp, palpitations, chao, dizziness, n/v/d/dysuria. Exam/Review of Systems Vital Signs Vitals Vital Signs Date Temp Pulse Resp B/P (MAP) Pulse Ox O2 O2 Flow FiO2 Time Delivery Rate 01/25/19 99.0 89 15 124/64 100 Room Air 07:34 (84) Intake and Output 01/24/19 01/24/19 01/25/19 1515:00 23:00 07:00 IntakeIntake Total 300 ml 1420 ml 200 ml BalanceBalance 300 ml 1420 ml 200 ml Exam Free Text/Dictation Constitutional: alert, oriented, well developed Psych: nl mood/affect Head: normocephalic, atraumatic Eyes: nl conjunctiva, EOMI, nl lids, jaundice ENMT: nl external ears & nose, nl lips & teeth, mucosa pink and moist Neck: supple, non-tender Respiratory: normal air movement; No congested cough Cardiovascular: regular rate and rhythm, nl pulses; No edema Gastrointestinal: soft, tender (Right inguinal incision site: Incision site clean without drainage/discoloration/bruising); No distended Genitourinary - Male: No nl scrotum (Right scrotal swelling- improved) Musculoskeletal: nl extremities to inspection, nl gait and stance Extremities: normal pulses Neurological: nl mental status, nl speech, nl strength Skin: No rash or lesions Lymph: No nl lymph nodes Results Result Diagram: 01/25/1943901/25/19439 EBONI ZARAGOZA NP January 25, 2019 12:37
--- NOTE | 2019-01-25 13:11 | PDOCDIS ---
Discharge Instructions DIAGNOSIS Discharge Diagnosis s/p right inguinal herniorrhaphy CONDITION [id number] Patient Condition: [id number] Stable HOME CARE INSTRUCTIONS: [id number] Diet Instructions: [id number] Regular ACTIVITY: [id number] Activity Restrictions: Sydmp2r Slowly Increase Activity Rest between Activity Avoid heavy lifting Do not Drive Do not operate Machinery Do not operate Power Tool Avoid Heavy Housework [id number] Bathing Restrictions: [id number] Shower FOLLOW UP/APPOINTMENTS Follow-up Plan Dr Everett 2 weeks -PCP 1 week RAKESH BANDA January 25, 2019 13:11
[2019-01-25] MEDS ORDERED: AMOX1TAB10 PO (13:12)
[2019-01-25 14:49] VITALS: BP 130/74; PULSE 85; RESP 16
[2019-01-25 20:14] VITALS: BP 130/76; PULSE 89; RESP 18
[2019-01-25] MEDS: HYDROCODONE/APAP (5/325) TAB PO PRN (22:38)
[2019-01-26] MEDS: PIPER-TAZO 3.375 GM IV (PMX) 100 ML IVPB SCH ×5 (00:06→23:36)
[2019-01-26 01:50] VITALS: BP 122/59; PULSE 78; RESP 18
[2019-01-26 07:31] VITALS: BP 123/60; PULSE 83; RESP 19
[2019-01-26 07:39] VITALS: BP 121/58; PULSE 83; RESP 19
--- NOTE | 2019-01-26 08:36 | CONS ---
Assessment/Plan Assessment/Plan Hospital Course (Demo Recall) 33-year-old male presented to the emergency room on January 17, 2019 with a right inguinal scrotal pain. Was found to have strangulated omentum and underwent right inguinal hernia repair and partial omentectomy. The patient has right scrotal swelling and therefore a urological consultation was requested. The patient had the inguinal hernia for over 1 year but it became painful and larger at the time of his admission. He denies any prior urinary symptoms and no prior history of epididymitis or orchitis. On the exam the right testis and scrotum are heard and swollen. This is most consistent with a hematoma. Even if the patient does have ischemia at the present time we will do nothing. Impression: Right scrotal and testicular swelling post right inguinal hernia repair. This is most likely a hematoma. Plan: Elevate the scrotum on a towel all the time. Consultation Date/Type/Reason Admit Date/Time January 17, 2019 Date of Consultation: January 26, 2019 Type of Consult Urology Reason for Consultation Right scrotal swelling. Requesting Provider: MARIJA CABRERA MD Date/Time of Note DATE: 01/26/19 TIME: 08:24 Hx of Present Illness 33-year-old male presented to the emergency room on January 17, 2019 with a right inguinal scrotal pain. Was found to have strangulated omentum and underwent right inguinal hernia repair and partial omentectomy. The patient has right scrotal swelling and therefore a urological consultation was requested. The patient had the inguinal hernia for over 1 year but it became painful and larger at the time of his admission. He denies any prior urinary symptoms and no prior history of epididymitis or orchitis. Constitutional: no complaints Eyes: no complaints ENT: no complaints Respiratory: no complaints Cardiovascular: no complaints Gastrointestinal: No nausea, No vomiting Genitourinary: other (Right side of the scrotum is swollen and hard.) Musculoskeletal: no complaints Skin: no complaints Neurologic: no complaints Past Medical History Medical History: no pertinent history Home Meds Active Scripts Amoxicillin/Potassium Clav (Amox-Clav 875-125 mg Tablet) 875-125 mg Tab, 1 TAB PO BID, #20 TAB Prov:RAKESH BANDA 01/25/19 Medications Current Medications Morphine Sulfate (morphine) 1 mg Q6H PRN IV pain Last administered on 01/19/19at 05:42; Admin Dose 1 MG; Start 01/17/19 at 11:30 Piperacillin Sod/ Tazobactam Sod 100 ml @ 200 mls/hr Q6 IVPB Last administered on 01/26/19at 05:42; Admin Dose 200 MLS/HR; Start 01/17/19 at 12:00 Ondansetron HCl (Zofran Inj) 4 mg Q6H PRN IV NAUSEA AND/OR VOMITING Last administered on 01/17/19at 21:20; Admin Dose 4 MG; Start 01/17/19 at 16:00 Acetaminophen/ Hydrocodone Bitart ([place] (5/325)) 1 tab Q4H PRN PO MODERATE PAIN LEVEL 4-6 Last administered on 01/25/19at 22:38; Admin Dose 1 TAB; Start 01/18/19 at 10:30 Famotidine (Pepcid) 20 mg BID PO Last administered on 01/25/19at 08:49; Admin Dose 20 MG; Start 01/19/19 at 09:00 Acetaminophen (Tylenol Tab) 650 mg Q6H PRN PO MILD PAIN(1-3)OR ELEVATED TEMP Last administered on 01/23/19at 15:12; Admin Dose 650 MG; Start 01/22/19 at 16:00 Allergies: Coded Allergies: No Known Allergy (Unverified , 01/17/19) Past Surgical History Past Surgical Hx: other (Right inguinal hernia repair and partial omentectomy done on 01/17/2019) Social History Alcohol Use: none Smoking Status: Never smoker Drug Use: none Exam/Review of Systems Exam Vitals Vital Signs Date Temp Pulse Resp B/P (MAP) Pulse Ox O2 O2 Flow FiO2 Time Delivery Rate 01/26/19 98.4 83 19 121/58 98 07:39 (79) 01/26/19 Room Air 01:50 Intake and Output 01/25/19 01/25/19 01/26/19 1515:00 23:00 07:00 IntakeIntake Total 450 ml 660 ml 600 ml BalanceBalance 450 ml 660 ml 600 ml Constitutional: alert Psych: no complaints Head: normocephalic Eyes: nl conjunctiva ENMT: nl external ears & nose Neck: supple Respiratory: normal air movement; No wheezing Cardiovascular: regular rate and rhythm Gastrointestinal: soft, surgical scars, other (Scar from recent right inguinal hernia repair. The wound looks well and healing well) Genitourinary - Male: other (Normal penis and left testis. The right side testis and scrotum are enlarged and hard.) Musculoskeletal: nl extremities to inspection Extremities: No calf tenderness Neurological: nl mental status Skin: nl turgor Results Result Diagram: 01/25/1943901/25/19439 Imaging Imaging Scrotal ultrasound: 1- Heterogeneous right testes with mild color-flow which may represent post ischemic in nature. The possibility of infectious etiology such as orchitis should also be considered in the correct clinical setting. Correlation with the patient's clinical exam findings is suggested. 2. Mild to moderate complex right hydrocele which has decreased in volume. Medications Medication Current Medications Morphine Sulfate (morphine) 1 mg Q6H PRN IV pain Last administered on 01/19/19 05:42; Admin Dose 1 MG; Start 01/17/19 at 11:30 Piperacillin Sod/ Tazobactam Sod 100 ml @ 200 mls/hr Q6 IVPB Last administered on 01/26/19 05:42; Admin Dose 200 MLS/HR; Start 01/17/19 at 12:00 Ondansetron HCl (Zofran Inj) 4 mg Q6H PRN IV NAUSEA AND/OR VOMITING Last administered on 01/17/19 21:20; Admin Dose 4 MG; Start 01/17/19 at 16:00 Acetaminophen/ Hydrocodone Bitart ([place] (5/325)) 1 tab Q4H PRN PO MODERATE PAIN LEVEL 4-6 Last administered on 01/25/19 22:38; Admin Dose 1 TAB; Start 01/18/19 at 10:30 Famotidine (Pepcid) 20 mg BID PO Last administered on 01/25/19 08:49; Admin Dose 20 MG; Start 01/19/19 at 09:00 Acetaminophen (Tylenol Tab) 650 mg Q6H PRN PO MILD PAIN(1-3)OR ELEVATED TEMP L ast administered on 01/23/19 15:12; Admin Dose 650 MG; Start 01/22/19 at 16:00 TELLY MCKEON MD January 26, 2019 08:36
[2019-01-26] MEDS: FAMOTIDINE 20 MG TAB PO SCH ×2 (09:07→20:13)
--- NOTE | 2019-01-26 11:48 | PN ---
Date/Time of Note Date/Time of Note DATE: 01/26/19 TIME: 11:45 Assessment/Plan Lines/Catheters IV Catheter Type (from [facility]): Saline Lock [facility] in Place (from [facility]): No Assessment/Plan Chief Complaint/Hosp Course 1. Strangulated omentum in right inguinal hernia s/p open repair with hybrid mesh, partial omentectomy on 01/18/2019; Fever and right scrotal swelling. CT noted> discussed w radiologist> possible testis infection/epididymitis. Urology input appreciated. -Continue antibiotics -IS -ambulate -ice pack to surgical site and scrotum -Scrotal support while ambulating -diet -towel to elevate scrotum -dc planning ok from surgical standpoint 2. Leukocytosis -abx for dc 3. Hypochromic anemia: -Monitor and transfuse as needed 4. Overweight BMI: -diet and exercise optimization -encourage weight loss 5. Jaundice: LFTs noted to be abnormal, ? hg reabsorption vs other -w/u per medical team Thank you Subjective 24 Hr Interval Summary Feels better. Urology input appreciated. Scrotal swelling minimally improving. No further fevers. No chills, sob, congested cough, cp, palpitations, chao, dizziness, n/v/d/dysuria. Exam/Review of Systems Vital Signs Vitals Vital Signs Date Temp Pulse Resp B/P (MAP) Pulse Ox O2 O2 Flow FiO2 Time Delivery Rate 01/26/19 98.4 83 19 121/58 98 07:39 (79) 01/26/19 Room Air 01:50 Intake and Output 01/25/19 01/25/19 01/26/19 1515:00 23:00 07:00 IntakeIntake Total 450 ml 660 ml 600 ml BalanceBalance 450 ml 660 ml 600 ml Exam Free Text/Dictation Constitutional: alert, oriented, well developed Psych: nl mood/affect Head: normocephalic, atraumatic Eyes: nl conjunctiva, EOMI, nl lids, jaundice ENMT: nl external ears & nose, nl lips & teeth, mucosa pink and moist Neck: supple, non-tender Respiratory: normal air movement; No congested cough Cardiovascular: regular rate and rhythm, nl pulses; No edema Gastrointestinal: soft, tender (Right inguinal incision site: Incision site clean without drainage/discoloration/bruising); No distended Genitourinary - Male: No nl scrotum (Right scrotal swelling- improved) Musculoskeletal: nl extremities to inspection, nl gait and stance Extremities: normal pulses Neurological: nl mental status, nl speech, nl strength Skin: No rash or lesions Lymph: No nl lymph nodes Results Result Diagram: 01/25/1943901/25/19439 KWESI WORTHINGTON MD January 26, 2019 11:48
[2019-01-26 15:01] VITALS: BP 139/74; PULSE 82; RESP 19
--- NOTE | 2019-01-26 15:06 | PN ---
Date/Time of Note Date/Time of Note DATE: 01/26/19 TIME: 15:03 Assessment/Plan VTE Prophylaxis Risk score (from Nsg)>0 risk: 1 SCD applied (from Ns): Yes Pharmacological prophylaxis: NA/contraindicated Pharm contraindication: low risk/ambulating Lines/Catheters IV Catheter Type (from Nrsg): Saline Lock Urinary Cath still in place: No Assessment/Plan Assessment/Plan Hospital Course 1. SIRS, WBC up 14 now with 2. s/p herniorrhaphy by dr Ardon 3. Hx of hernia for one year 4. Overweight 5. right inguinal post operative fluid /hematoma/seroma collection 6 abnormal LFTs Assessment/Plan -elevate scrotum while laying down, per urology its hematoma -hb stable - management per surgery -Continue with Zosyn?? Will call ID for questionable orchitis - abd US due to rising LFT : Result Diagram: 01/25/1943901/25/19439 Subjective 24 Hr Interval Summary Free Text/Dictation swelling has not much improved Exam/Review of Systems Exam Vitals Vital Signs Date Temp Pulse Resp B/P (MAP) Pulse Ox O2 O2 Flow FiO2 Time Delivery Rate 01/26/19 98.2 82 19 139/74 96 Room Air 15:01 (95) Intake and Output 01/25/19 01/25/19 01/26/19 1515:00 23:00 07:00 IntakeIntake Total 450 ml 660 ml 600 ml BalanceBalance 450 ml 660 ml 600 ml Exam SCLERAL icterus Constitutional: alert, oriented Respiratory: clear to auscultation Cardiovascular: regular rate and rhythm Gastrointestinal: soft Genitourinary - Male: nl penis, other (rigth side scrotum swollen, hard, postopr scar is clean and dry) Medications Medication Current Medications Morphine Sulfate (morphine) 1 mg Q6H PRN IV pain Last administered on 01/19/19at 05:42; Admin Dose 1 MG; Start 01/17/19 at 11:30 Piperacillin Sod/ Tazobactam Sod 100 ml @ 200 mls/hr Q6 IVPB Last administered on 01/26/19at 12:02; Admin Dose 200 MLS/HR; Start 01/17/19 at 12:00 Ondansetron HCl (Zofran Inj) 4 mg Q6H PRN IV NAUSEA AND/OR VOMITING Last administered on 01/17/19 21:20; Admin Dose 4 MG; Start 01/17/19 at 16:00 Acetaminophen/ Hydrocodone Bitart ([place] (5/325)) 1 tab Q4H PRN PO MODERATE HERMINIA N LEVEL 4-6 Last administered on 01/25/19at 22:38; Admin Dose 1 TAB; Start 01/18/19 at 10:30 Famotidine (Pepcid) 20 mg BID PO Last administered on 01/26/19 09:07; Admin Dose 20 MG; Start 01/19/19 at 09:00 Acetaminophen (Tylenol Tab) 650 mg Q6H PRN PO MILD PAIN(1-3)OR ELEVATED TEMP Last administered on 01/23/19 15:12; Admin Dose 650 MG; Start 01/22/19 at 16:00 HANH MOORE MD January 26, 2019 15:06
--- NOTE | 2019-01-26 16:13 | CONS ---
DATE OF ADMISSION: 01/17/2019 DATE OF CONSULTATION: 01/26/2019 TYPE OF CONSULTATION: Infectious disease. REQUESTING PHYSICIAN: Mirna Hastings MD Thank you, Dr. Hastings, for this consultation. HISTORY OF PRESENT ILLNESS: This is a well-developed 33-year-old man admitted with strangulated omen una and right inguinal hernia status post open repair with hybrid mesh, partial omentectomy on 2018. The patient had an uncomplicated hospital course, had been on Zosyn since 01/17/2019. The pat ient apparently had been having ongoing leukocytosis and also scrotal swelling. He had a CT of the a bdomen and pelvis done yesterday that redemonstrated postsurgical changes of right inguinal hernia re pair with mild interval decrease hemoperitoneum and stranding of the pelvis extending to the right in guinal canal and scrotum. The patient had testicular ultrasound yesterday that revealed heterogenous right testis with mild which may represent post-ischemic in nature, questionable orchitis, mil d to moderate complex right hydrocele which has decreased in volume. The patient is being seen by Dr Venus Mckeon as a matter of fact this morning who notes that swelling of his right testis and scrotum mo re consistent with hematoma and if there is ischemia at the present time, there is nothing to be done . He recommended to keep scrotum elevated on the towel at all time. VITAL SIGNS: The patient had been afebrile for the last 3 days. Temperature today 98.2, pulse 82, r espirations 19, blood pressure 139/74, saturation 96% on room air. LABORATORY DATA: WBC yesterday 14.7 with H and H of 8.8 and 27.3, platelets 536, neutrophils 67.4. BUN 6, creatinine 0.9. MICROBIOLOGY: Blood culture since admission was negative. PAST MEDICAL HISTORY: None. SOCIAL HISTORY: The patient came from home. Denies smoking, alcohol or illicits. REVIEW OF SYSTEMS: All negative except as per mentioned in history of present illness. The patient has scrotal swelling mostly on the right side. PHYSICAL EXAMINATION: GENERAL: Well-developed, well-nourished, middle-aged man who is alert, in no distress. HEENT: Head is atraumatic, normocephalic. Sclerae are anicteric. Buccal mucosa is pink. NECK: Supple. CHEST: Rise symmetrical. Breath sounds are clear. HEART: S1, S2. ABDOMEN: Soft. Bowel tones are present. GENITOURINARY: The patient has a well-healed very thin incision on the right suprapubic area. Right -sided of the scrotum is swollen and hot to touch. EXTREMITIES: Without cyanosis or edema. DIAGNOSTIC IMPRESSION: This is a 33-year-old man admitted with incarcerated hernia, status post repa ir, now with postoperative scrotal swelling more consistent with hematoma per urology notes. The pat ient is covered with Zosyn. We will continue him on current regimen. Continue scrotal elevation. F ollow urology and surgical recommendations. The patient of note had been afebrile for the last 3 day s. If he spikes fever, we will reculture him. I discussed with Dr. Dallas Ivey. Dictated By: PORTILLO SAMS ACQUISITION ANALYST for [place] IVEY MD NI/NTS Conf#: [id number] DID#: [id number] CC: TELLY MCKEON MD; MARIJA CABRERA MD;*End*
[2019-01-26 19:53] VITALS: BP 116/84; PULSE 91; RESP 16
[2019-01-27 01:01] VITALS: BP 127/66; PULSE 85; RESP 18
[2019-01-27] MEDS: PIPER-TAZO 3.375 GM IV (PMX) 100 ML IVPB SCH ×2 (05:14→12:00)
--- NOTE | 2019-01-27 08:15 | CONS ---
Assessment/Plan Assessment/Plan Hospital Course (Demo Recall) 33-year-old male presented to the emergency room on January 17, 2019 with a right inguinal scrotal pain. Was found to have strangulated omentum and underwent right inguinal hernia repair and partial omentectomy. The patient has right scrotal swelling and therefore a urological consultation was requested. The patient had the inguinal hernia for over 1 year but it became painful and larger at the time of his admission. He denies any prior urinary symptoms and no prior history of epididymitis or orchitis. On the exam the right testis and scrotum are heard and swollen. This is most consistent with a hematoma. Even if the patient does have ischemia at the present time we will do nothing. Impression: Right scrotal and testicular swelling post right inguinal hernia repair. This is most likely a hematoma. Plan: Continue to elevate the scrotum on a towel all the time. Consultation Date/Type/Reason Admit Date/Time January 17, 2019 at 04:44 Initial Consult Date 01/26/19 Type of Consult Urology Reason for Consultation Right scrotal swelling Requesting Provider: MARIJA CABRERA MD Date/Time of Note DATE: 01/27/19 TIME: 08:13 24 HR Interval Summary Free Text/Dictation Patient remains comfortable, he does have swelling of the right scrotum. The pain is less Exam/Review of Systems Exam Vitals Vital Signs Date Temp Pulse Resp B/P (MAP) Pulse Ox O2 O2 Flow FiO2 Time Delivery Rate 01/27/19 97.5 85 18 127/66 97 Room Air 01:01 (86) Intake and Output 01/26/19 01/26/19 01/27/19 1515:00 23:00 07:00 IntakeIntake Total 100 ml 1080 ml 200 ml BalanceBalance 100 ml 1080 ml 200 ml Exam The inguinal incision is clean and dry with no sign of infection. The right scrotum remains hard and swollen. Patient again was instructed to keep it elevated on a towel to help the swelling go down Results Result Diagram: 01/27/19 0423 01/27/19 0423 Results 24hrs Laboratory Tests Test 01/27/19 04:23 White Blood Count 15.1 H Red Blood Count 3.39 L Hemoglobin 9.5 L Hematocrit 29.3 L Mean Corpuscular Volume 86.4 Mean Corpuscular Hemoglobin 28.0 L Mean Corpuscular Hemoglobin Concent 32.4 Red Cell Distribution Width 13.3 Platelet Count 592 H Mean Platelet Volume 8.6 Immature Granulocytes % 5.300 H Neutrophils % 67.5 Lymphocytes % 14.3 L Monocytes % 10.9 Eosinophils % 1.5 Basophils % 0.5 Nucleated Red Blood Cells % 0.2 H Immature Granulocytes # 0.800 H Neutrophils # 10.2 H Lymphocytes # 2.2 Monocytes # 1.7 H Eosinophils # 0.2 Basophils # 0.1 Nucleated Red Blood Cells # 0.0 Sodium Level 141 Potassium Level 4.1 Chloride Level 103 Carbon Dioxide Level 31 Anion Gap 7 Blood Urea Nitrogen 8 Creatinine 0.79 Est Glomerular Filtrat Rate mL/min > 60 Glucose Level 89 Calcium Level 9.1 Total Bilirubin 0.9 Direct Bilirubin 0.00 Indirect Bilirubin 0.9 Aspartate Amino Transf (AST/SGOT) 30 Alanine Aminotransferase (ALT/SGPT) 70 H Alkaline Phosphatase 168 H Total Protein 7.6 Albumin 3.9 Globulin 3.70 H Albumin/Globulin Ratio 1.05 Medications Medication Current Medications Morphine Sulfate (morphine) 1 mg Q6H PRN IV pain Last administered on 01/19/19 05:42; Admin Dose 1 MG; Start 01/17/19 at 11:30 Piperacillin Sod/ Tazobactam Sod 100 ml @ 200 mls/hr Q6 IVPB Last administered on 01/27/19 05:14; Admin Dose 200 MLS/HR; Start 01/17/19 at 12:00 Ondansetron HCl (Zofran Inj) 4 mg Q6H PRN IV NAUSEA AND/OR VOMITING Last administered on 01/17/19 21:20; Admin Dose 4 MG; Start 01/17/19 at 16:00 Acetaminophen/ Hydrocodone Bitart ([place] (5/325)) 1 tab Q4H PRN PO MODERATE PAIN LEVEL 4-6 Last administered on 01/25/19 22:38; Admin Dose 1 TAB; Start 01/18/19 at 10:30 Famotidine (Pepcid) 20 mg BID PO Last administered on 01/26/19 20:13; Admin Dose 20 MG; Start 01/19/19 at 09:00 Acetaminophen (Tylenol Tab) 650 mg Q6H PRN PO MILD PAIN(1-3)OR ELEVATED TEMP Last administered on 5/17/19at 15:12; Admin Dose 650 MG; Start 01/22/19 at 16:00 TELLY MCKEON MD January 27, 2019 08:15
[2019-01-27 08:30] VITALS: BP 113/68; PULSE 92; RESP 18
[2019-01-27] MEDS: FAMOTIDINE 20 MG TAB PO SCH (08:44)
--- NOTE | 2019-01-27 11:15 | PN ---
Date/Time of Note Date/Time of Note DATE: 01/27/19 TIME: 11:12 Assessment/Plan Lines/Catheters IV Catheter Type (from [facility]): Saline Lock [facility] in Place (from [facility]): No Assessment/Plan Chief Complaint/Hosp Course 1. Strangulated omentum in right inguinal hernia s/p open repair with hybrid mesh, partial omentectomy on 01/18/2019; Fever and right scrotal swelling. CT noted> discussed w radiologist> possible testis infection/epididymitis. Urology input appreciated. -Continue antibiotics -IS -ambulate -ice pack to surgical site and scrotum -Scrotal support while ambulating -diet -towel to elevate scrotum -dc planning ok from surgical standpoint- f/u in office in 1-2 weeks 2. Leukocytosis -abx for dc 3. Hypochromic anemia: -Monitor and transfuse as needed 4. Overweight BMI: -diet and exercise optimization -encourage weight loss 5. Jaundice: LFTs noted to be abnormal, ? hg reabsorption vs other; us noted w hepatomegaly -f/u pcp -encourage wt loss Thank you. Patient seen and examined in collaboration with Dr. Grabiel Ardon. Subjective 24 Hr Interval Summary No fevers, chills, sob, congested cough, cp, palpitations, chao, dizziness, n/v/d/dysuria. Scrotal swelling/discomfort improved. Exam/Review of Systems Vital Signs Vitals Vital Signs Date Temp Pulse Resp B/P (MAP) Pulse Ox O2 O2 Flow FiO2 Time Delivery Rate 01/27/19 98.7 92 18 113/68 98 Room Air 08:30 (83) Intake and Output 01/26/19 01/26/19 01/27/19 1515:00 23:00 07:00 IntakeIntake Total 100 ml 1080 ml 200 ml BalanceBalance 100 ml 1080 ml 200 ml Exam Free Text/Dictation Constitutional: alert, oriented, well developed Psych: nl mood/affect Head: normocephalic, atraumatic Eyes: nl conjunctiva, EOMI, nl lids, jaundice ENMT: nl external ears & nose, nl lips & teeth, mucosa pink and moist Neck: supple, non-tender Respiratory: normal air movement; No congested cough Cardiovascular: regular rate and rhythm, nl pulses; No edema Gastrointestinal: soft, tender (Right inguinal incision site: Incision site clean without drainage/discoloration/bruising); No distended Genitourinary - Male: No nl scrotum (Right scrotal swelling- improved) Musculoskeletal: nl extremities to inspection, nl gait and stance Extremities: normal pulses Neurological: nl mental status, nl speech, nl strength Skin: No rash or lesions Lymph: No nl lymph nodes Results Result Diagram: 01/27/19 0423 01/27/19 0423 EBONI ZARAGOZA NP January 27, 2019 11:15
--- NOTE | 2019-01-27 14:35 | DS ---
DATE OF ADMISSION: 01/17/2019 DATE OF DISCHARGE: 01/27/2019 HISTORY OF PRESENT ILLNESS AND HOSPITAL COURSE: This is a 33-year-old male with no past medical hist ory of right inguinal hernia for 1 year, presented to the ED complaining of increasing pain and swell ing noted on the right inguinal region identical for past 1 day. Typically he has a hernia that was big. He had history of right inguinal hernia, with some testicular pain. He was seen by and was sent for some ultrasound, poor historian. On admission, vital signs were stable. The patien t had a CT of the abdomen and pelvis that showed apparent incarcerated omental adipose tissue vascula ture in the right inguinal hernia resulting in generalized inflammation right side of the omentum ext ending upward nearly to the level of caudal tip of the liver. No evidence of bowel obstruction or pe rforation. No evidence of UTI or obstruction. The patient was kept n.p.o., started on IV Zosyn. Th e patient was seen by Dr. Ardon for surgery consultation. Had strangulated omentum and had IRH, chao d a difficult operation, had with mesh and partial omentectomy. The patient was a diffic ult operation. However, postop patient was having some fevers. The swelling of the scrotum still pe rsisted. The patient had a repeat CT of the abdomen and pelvis that showed interval postsurgical hannah nges. Small complex fluid-filled and a small hematoma within the right scrotum. Right inguinal shaggy l. Small complex free fluid is seen in the pelvis around the liver and the spleen. The patient was continued on antibiotics and also on scrotal elevation. Patient's condition was closely followed as the scrotal swelling was not getting better. Dr. Mcintyre was also consulted for testicular swelling and right scrotal and testicle swelling post right inguinal hernia repair was most likely a hematoma and the plan was to elevate the scrotum on towel for a time. Finally, patient stopped having any fev ers. White count was still 15 x 4.1. The patient was clinically feeling better. Hemoglobin had bee n stable around 9.5. Patient also had an abdominal ultrasound done due to abnormal LFTs, however, sh ows some mild hepatomegaly and trace amount of ascites. The patient also had a testicular ultrasound that showed heterogeneous right , mild color flow material and post-ischemic in nature. Possib ility of infectious etiology orchitis should be considered. ID was also mild to more complex, right hydrocele which has decreased in volume. The case was discussed with surgery. Blood cultures have b een negative. The patient's condition was getting better every day and per surgery, urology and ID, stable to be discharged. The patient will be going home on amoxicillin for 7 more days. FINAL DIAGNOSES: 1. Strangulated omentum, right inguinal hernia site of open repair with hybrid mesh, partial omentec dara on 01/18/2019, fever and right scrotal swelling. CT noted possible hematoma or epididymitis; ho denise, per ID and urology, it is not epididymitis. 2. Right scrotal hematoma. Advised scrotal elevation. 3. Leukocytosis. 4. Hypochromic anemia. 5. Overweight. 6. Mild jaundice. 7. LFTs noted to be abnormal, however, improving. DISCHARGE CONDITION: Stable. DISCHARGE DIET: Regular. DISCHARGE INSTRUCTIONS: The patient was instructed to follow up with PCP in 1 to 2 weeks, Dr. Kathy poole 1 to 2 weeks. Keep the scrotal elevation and return to ER if he has severe abdominal pain, scrotal swelling, fever or chills. DISCHARGE MEDICATIONS: Amoxicillin 875 p.o. b.i.d. for 7 more days. Dictated By: HANH ANDRADE/JAMES Conf#: [id number] DID#: [id number] CC: MARIJA CABRERA MD;*EndCC*
== END 2019-01-27 13:07 | disposition home or self-care (01) | DRG 351 ==
LOC: FTE 22:48 → MS1 01-17 04:44
PROVIDERS: ADMIT Internal Medicine Nephrology; ATTEND Internal Medicine Nephrology
PROC: 0DBU0ZZ Excision of Omentum, Open Approach (ICD-10-PCS; 2019-01-17)
PROC: 0YU50JZ Supplement Right Inguinal Region with Synthetic Substitute, Open Approach (ICD-10-PCS; principal; 2019-01-17 18:00)
DX: K40.30 Unilateral inguinal hernia, with obstruction, without gangrene, not specified as recurrent (principal); R65.10 Systemic inflammatory response syndrome (SIRS) of non-infectious origin without acute organ dysfunction; R17 Unspecified jaundice; N99.841 Postprocedural hematoma of a genitourinary system organ or structure following other procedure; R18.8 Other ascites; E66.3 Overweight; Z68.28 Body mass index [BMI] 28.0-28.9, adult; D50.9 Iron deficiency anemia, unspecified; Y83.8 Other surgical procedures as the cause of abnormal reaction of the patient, or of later complication, without mention of misadventure at the time of the procedure; Y92.239 Unspecified place in hospital as the place of occurrence of the external cause; R94.5 Abnormal results of liver function studies; R16.0 Hepatomegaly, not elsewhere classified; K66.8 Other specified disorders of peritoneum
CPT/HCPCS: 36415; 74177; 76705; 76870; 80048; 80053; 80076; 81003; 82310; 83690; 83735; 84100; 84145; 85014; 85018; 85025; 85610; 85651; 85730; 86140; 88302; 88305; 96374; 96375; J0690; J1885; J2001; J2270; J2405; J2543; J2710; J2795; J3010; J7030; J7042; Q9967